=== PATIENT | female | born 1955 | race Caucasian/White ===

== ENCOUNTER 2018-07-13 23:19 | Inpatient (IN) | payer MEDICAID, OTHER | END 2018-07-19 14:14 | disposition home or self-care (01) | LOC: ER 23:19 → ED HOLD 07-14 03:14 → SUR 3N 07-15 10:11 ==

== ENCOUNTER 2018-09-29 05:18 | Emergency (ER) | payer MEDICAID ==
[~2018-09-29] VITALS: Ht 170.2 cm; Wt 63.8 kg
[~2018-09-29 05:18] MED LIST: LEVO250T58 PO; LISI-600 PO; METF-438 PO; OXYB5TAB PO
[2018-09-29 05:26] VITALS: BP 119/71
== END 2018-09-29 06:04 | disposition home or self-care (01) ==
LOC: ER 05:20
DX: Z46.6 Encounter for fitting and adjustment of urinary device (principal); I10 Essential (primary) hypertension; E11.9 Type 2 diabetes mellitus without complications; Z79.2 Long term (current) use of antibiotics; Z79.899 Other long term (current) drug therapy
CPT/HCPCS: 99281

== ENCOUNTER 2018-11-27 09:14 | Inpatient (IN) | payer MEDICAID ==
[~2018-11-27] VITALS: Ht 170.2 cm; Wt 79.5 kg
[~2018-11-27 09:14] MED LIST changes: -OXYB5TAB PO; +OXYB5TAB4 PO
[2018-11-27] MEDS ORDERED: ondansetron/PF 4mg/2ml inj IV ONE (09:45)
[2018-11-27] MEDS ORDERED: normal saline 1000ML IV soln IVB ONE (09:45)
[2018-11-27 09:56] LABS: BASOPHILS % (AUTO) 0.2 % (0-1); EOSINOPHILS # (AUTO) 0.1 X10'3 (0-0.9); EOSINOPHILS % (AUTO) 0.4 % (0-6); LYMPHOCYTES # (AUTO) 0.9 X10'3 (1.1-4.8); LYMPHOCYTES % (AUTO) 4.8 % (21-51); MEAN CORPUSCULAR HEMOGLOBIN 29.2 PG (27.0-31.0); MEAN CORPUSCULAR HGB CONC 32.3 g/dL (33.0-36.5); MEAN CORPUSCULAR VOLUME 90.5 FL (78-98); MEAN PLATELET VOLUME 7.6 FL (7.4-10.4); MONOCYTES # (AUTO) 0.9 X10'3 (0-0.9); MONOCYTES % (AUTO) 4.9 % (2-12); NEUTROPHILS % (AUTO) 89.7 % (42-75); PLATELET COUNT 351 X10'3 (140-440); RED BLOOD COUNT 2.31 X10'6 (4.20-5.60); RED CELL DISTRIBUTION WIDTH 16.9 % (11.5-14.5); WHITE BLOOD COUNT 17.9 X10'3 (4.5-11.0)
[2018-11-27 10:00] LABS: HEMATOCRIT 20.9 % (35.0-45.0); HEMOGLOBIN 6.7 g/dl (12.0-16.0)
[2018-11-27 10:09] LABS: ALANINE AMINOTRANSFERASE 13 U/L (12-78); ALBUMIN 1.8 G/DL (3.4-5.0); ALBUMIN/GLOBULIN RATIO 0.3 (1.1-1.5); ALKALINE PHOSPHATASE 141 IU/L (46-116); ANION GAP 12 (8-16); ASPARTATE AMINO TRANSFERASE 10 U/L (10-37); BILIRUBIN,TOTAL 0.4 MG/DL (0.1-1.0); BLOOD UREA NITROGEN 53 MG/DL (7-18); BUN/CREATININE RATIO 19.5 (6.6-38.0); CALCIUM 9.4 MG/DL (8.5-10.1); CHLORIDE 101 MMOL/L (99-107); CREATININE 2.72 MG/DL (0.40-0.90); GLUCOSE 108 MG/DL (70-104); POTASSIUM 4.9 MMOL/L (3.5-5.1); SODIUM 130 MMOL/L (135-145); TOTAL CARBON DIOXIDE 17.2 MMOL/L (24-32); TOTAL PROTEIN 7.7 G/DL (6.4-8.2); eGFR 18 ML/MIN
[2018-11-27] MEDS: morphine 4 MG/ML inj SYRINge IV PRN ×2 (10:14→11:24)
[2018-11-27 10:22] LABS: CLARITY,URINE CLEAR (Clear); GLUCOSE, URINE 100 mg/dl (Neg); KETONES,URINE NEGATIVE (Neg); LEUKOCYTE ESTERASE ,URINE LARGE (Neg); NITRITES, URINE POSITIVE (Neg); OCCULT BLOOD,URINE LARGE (Neg); PH,URINE 8.5 (4.8-8.0); PROTEIN,URINE >=300 mg/dl (Neg)
[2018-11-27 10:24] LABS: COLOR,URINE BROWN (Yellow); UA COLLECTION TYPE STRAIGHT CATH
[2018-11-27 10:27] LABS: WBC,URINE TNTC /HPF (0-4)
[2018-11-27 10:28] LABS: BACTERIA,URINE 4+ /HPF (Neg); RBC,URINE 50-100 /HPF (0-2); SQUAMOUS EPITHELIAL CELL,UR MODERATE /LPF (FEW)
[2018-11-27] MEDS ORDERED: CefTRIAXone 2gm/D5W 50ml 50 ML IV ONE (10:30)
[2018-11-27] MEDS ORDERED: normal saline 1000ML IV soln IV ONE (10:30)
[2018-11-27] MEDS ORDERED: glucagon, human recombinant 1mg kit SUBCUT PRN (12:05)
[2018-11-27] MEDS ORDERED: ondansetron/PF 4mg/2ml inj IV PRN (12:05)
[2018-11-27] MEDS ORDERED: MESSAGE TO PHARMACY PO ONE (12:05)
[2018-11-27] MEDS ORDERED: acetaminophen 325mg tablet PO PRN ×2 (12:05)
[2018-11-27] MEDS ORDERED: dextrose 50%-water 50ml dispensing syringe IV PRN ×2 (12:05)
[2018-11-27] MEDS ORDERED: dextrose ORAL solution 15 GM/59 ML bottle PO PRN ×2 (12:05)
[2018-11-27] MEDS ORDERED: insulin Lispro (HumaLOG) vial - multi-dose SQ SCH (12:05)
--- NOTE | 2018-11-27 12:27 | NUR ---
Briana from blood bank stated pt has nonspecific antibodies after type and cross completed
[2018-11-27 12:34] LABS: HEMOGLOBIN A1C 5.4 % (4.5-6.2)
[2018-11-27] MEDS ORDERED: NITR100C11 PO (12:35)
[2018-11-27] MEDS ORDERED: ONDA8TAB12 PO (12:35)
[2018-11-27] MEDS ORDERED: HYDR-3972 PO (12:35)
[2018-11-27 12:50] VITALS: BP 109/56
[2018-11-27 13:07] VITALS: BP 117/63
--- NOTE | 2018-11-27 13:07 | NUR ---
SECOND SET OF VITALS COMPLETE, NO NOTED REACTION, PT RESTING QUIETLY AFTER CLEANING HER UP AND PUTTING ON DRY PADS
[2018-11-27] MEDS: normal saline 1000ml 1,000 ML IV SCH ×2 (14:24→22:31)
--- NOTE | 2018-11-27 14:39 | NUR ---
BLOOD COMPLETE, V/S STABLE AND RECORDED, CLEANED AND DRIED PT UP APPLYING NEW CHUX, DRY GOWN AND WARM BLANKS. REPOSITIONED PT AND BEGAN MAINTANCE N/S CALL VELEZ AT BEDSIDE
--- NOTE | 2018-11-27 15:00 | NUR ---
Patient in room PCU 3010. I have received report from Leslie Barnard RN and had the opportunity to ask questions and assume patient care.
[2018-11-27 15:15] VITALS: BP 127/54
[2018-11-27] MEDS: piperacillin/tazo 3.375gm/50ml 50 ML IV SCH ×2 (16:13→23:53)
[2018-11-27 16:32] LABS: MEAN CORPUSCULAR HEMOGLOBIN 29.3 PG (27.0-31.0); MEAN CORPUSCULAR HGB CONC 32.9 g/dL (33.0-36.5); MEAN CORPUSCULAR VOLUME 89.1 FL (78-98); MEAN PLATELET VOLUME 7.4 FL (7.4-10.4); PLATELET COUNT 285 X10'3 (140-440); RED BLOOD COUNT 2.32 X10'6 (4.20-5.60); RED CELL DISTRIBUTION WIDTH 16.8 % (11.5-14.5); WHITE BLOOD COUNT 15.4 X10'3 (4.5-11.0)
[2018-11-27 16:36] LABS: HEMATOCRIT 20.7 % (35.0-45.0); HEMOGLOBIN 6.8 g/dl (12.0-16.0)
--- NOTE | 2018-11-27 16:42 | NUR ---
Page sent to Dr. Patton regarding critical lab results. PAGER ID: [phone] MESSAGE: RE: [phone] Leslie Johnson. Critical Lab: Hgb 6.8 Hct 20.7. Thanks. Dilcia Reyes [phone]
[2018-11-27 17:41] LABS: HEMOGLOBIN 7.1 g/dl (12.0-16.0); MEAN CORPUSCULAR HEMOGLOBIN 28.5 PG (27.0-31.0); MEAN CORPUSCULAR HGB CONC 32.2 g/dL (33.0-36.5); MEAN CORPUSCULAR VOLUME 88.5 FL (78-98); MEAN PLATELET VOLUME 7.4 FL (7.4-10.4); PLATELET COUNT 318 X10'3 (140-440); RED BLOOD COUNT 2.48 X10'6 (4.20-5.60); RED CELL DISTRIBUTION WIDTH 16.7 % (11.5-14.5); WHITE BLOOD COUNT 16.8 X10'3 (4.5-11.0)
--- NOTE | 2018-11-27 17:46 | NUR ---
Paged Dr. Patton r/t 1800 hemogram results PAGER ID: [phone] MESSAGE: Constantine GODOY [phone] AmandeepLeslie marquez: [phone] hemogram results: Hgb 7.1. Hct 22.0
[2018-11-27 18:04] LABS: % IRON SATURATION 28 % (11-46); IRON 23 UG/DL (49-151); TOTAL IRON BINDING CAPACITY 83 UG/DL (259-388)
--- NOTE | 2018-11-27 18:29 | NUR ---
Problems reprioritized. Patient report given, questions answered & plan of care reviewed with Francesco GODOY.
--- NOTE | 2018-11-27 18:30 | NUR ---
Patient in room PCU 3010. I have received report from Constantine Braun and Kade Ha and had the opportunity to ask questions and assume patient care.
[2018-11-27 18:35] LABS: FERRITIN 1598 NG/ML (8-252)
[2018-11-27 19:00] VITALS: BP 127/54
[2018-11-27] MEDS: heparin, porcine 5000 units/ml vial SQ SCH (19:50)
[2018-11-27] MEDS: docusate sod 100mg capsule PO SCH (19:50)
[2018-11-27] MEDS: HYDROcodone/acetaminophen 5mg/325mg tablet PO PRN (19:51)
[2018-11-27] MEDS: NYSTATIN CREAM - 30GM TUBE TP SCH (19:52)
[2018-11-27] MEDS: insulin glargine (Lantus) pen - multi-dose SQ SCH (21:00)
[2018-11-27 22:00] VITALS: BP 113/54
[2018-11-28] VITALS (12 sets, daily range): BP systolic 110–163; BP diastolic 50–76
[2018-11-28] MEDS: HYDROcodone/acetaminophen 5mg/325mg tablet PO PRN ×4 (04:49→23:06)
[2018-11-28 05:05] LABS: BASOPHILS % (AUTO) 0.2 % (0-1); EOSINOPHILS # (AUTO) 0.1 X10'3 (0-0.9); EOSINOPHILS % (AUTO) 0.6 % (0-6); LYMPHOCYTES # (AUTO) 0.5 X10'3 (1.1-4.8); LYMPHOCYTES % (AUTO) 3.7 % (21-51); MEAN CORPUSCULAR HEMOGLOBIN 29.2 PG (27.0-31.0); MEAN CORPUSCULAR HGB CONC 32.8 g/dL (33.0-36.5); MEAN CORPUSCULAR VOLUME 88.9 FL (78-98); MEAN PLATELET VOLUME 7.6 FL (7.4-10.4); MONOCYTES # (AUTO) 0.7 X10'3 (0-0.9); MONOCYTES % (AUTO) 4.4 % (2-12); NEUTROPHILS # (AUTO) 13.6 X10'3 (1.8-7.7); NEUTROPHILS % (AUTO) 91.1 % (42-75); PLATELET COUNT 272 X10'3 (140-440); RED BLOOD COUNT 2.15 X10'6 (4.20-5.60); WHITE BLOOD COUNT 14.9 X10'3 (4.5-11.0)
[2018-11-28 05:15] LABS: ALANINE AMINOTRANSFERASE 12 U/L (12-78); ALBUMIN 1.3 G/DL (3.4-5.0); ALBUMIN/GLOBULIN RATIO 0.3 (1.1-1.5); ALKALINE PHOSPHATASE 122 IU/L (46-116); ANION GAP 12 (8-16); ASPARTATE AMINO TRANSFERASE 12 U/L (10-37); BILIRUBIN,TOTAL 0.3 MG/DL (0.1-1.0); BLOOD UREA NITROGEN 47 MG/DL (7-18); BUN/CREATININE RATIO 20.2 (6.6-38.0); CALCIUM 8.1 MG/DL (8.5-10.1); CHLORIDE 106 MMOL/L (99-107); CREATININE 2.33 MG/DL (0.40-0.90); GLUCOSE 84 MG/DL (70-104); POTASSIUM 4.8 MMOL/L (3.5-5.1); SODIUM 134 MMOL/L (135-145); TOTAL CARBON DIOXIDE 16.3 MMOL/L (24-32); TOTAL PROTEIN 6.2 G/DL (6.4-8.2); eGFR 21 ML/MIN
[2018-11-28 05:45] LABS: HEMATOCRIT 19.1 % (35.0-45.0); HEMOGLOBIN 6.3 g/dl (12.0-16.0)
--- NOTE | 2018-11-28 06:31 | NUR ---
Problems reprioritized. Patient report given, questions answered & plan of care reviewed with WALT Andres.
--- NOTE | 2018-11-28 06:48 | NUR ---
Patient in room PCU 3010. I have received report from Francesco GODOY and had the opportunity to ask questions and assume patient care.
[2018-11-28] MEDS: docusate sod 100mg capsule PO SCH ×2 (07:24→20:00)
[2018-11-28] MEDS: piperacillin/tazo 3.375gm/50ml 50 ML IV SCH (07:24)
[2018-11-28] MEDS: NYSTATIN CREAM - 30GM TUBE TP SCH ×2 (07:24→20:00)
[2018-11-28] MEDS: heparin, porcine 5000 units/ml vial SQ SCH ×2 (08:00→21:03)
[2018-11-28] MEDS: normal saline 1000ml 1,000 ML IV SCH ×2 (08:05→18:05)
[2018-11-28] MEDS: CefTRIAXone 2gm/D5W 50ml 50 ML IV SCH (08:56)
--- NOTE | 2018-11-28 10:17 | NUR ---
Paged Dr Quiroz with critical values " PAGER ID: [phone] MESSAGE: [phone] Pina Christie Elizabeth Leslie Blood cultures are positive from the left arm drawn on 11/27. Gram positive cocci in chains and pairs. Became positive at 22-23 hours."
--- NOTE | 2018-11-28 11:22 | NUR ---
PRESSURE ULCER EDUCATION: DEFINITION: A pressure ulcer is an area of skin that breaks down when you stay in one position too long. The constant pressure against the skin reduces the blood flow to that area and the affected tissue dies. CAUSES: "Being bedridden or in a wheelchair "Fragile skin "Having a chronic condition, such as diabetes or vascular disease "Inability to move certain parts of your body without assistance "Older age "Incontinence of urine or stool SYMPTOMS: "A reddened area that DOES NOT turn white when pressed on - this can be the beginning of a pressure ulcer "A blister, deep sore or a crater - these can be advanced pressure ulcers FIRST AID: "Relieve the pressure on this area "Keep the area clean and dry "Call your primary doctor if you see any of the above symptoms "DO NOT massage the area "DO NOT use a donut shaped or ring shaped pillow- these actually interfere with the blood flow and cause complications PREVENTION: "Check for pressure ulcers everyday "Change position at least every two hours to relieve pressure "Use items that help relieve pressure- pillows, sheepskin, foam padding, and powders. "Keep skin clean and dry "Eat healthy well balanced meals "Exercise daily IF YOU SEE ANY OF THESE SYMPTOMS WHILE IN THE HOSPITAL - TELL YOUR NURSE IMMEDIATELY. IF YOU SEE ANY OF THESE SYMPTOMS WHILE AT HOME OR HAVE ANY QUESTIONS OR CONCERNS ABOUT PRESSURE ULCERS - CALL YOUR PRIMARY DOCTOR IMMEDIATELY. Addendum: 11/28/18 at 1122 by Cash Torres RN Amended: Links added.
--- NOTE | 2018-11-28 12:36 | NUR ---
breaking assigned nurse Melly for lunch, [place] given for patient, states her abdominal pain is not new, she has had it previously before getting her blood transfusion. Melly is aware.
--- NOTE | 2018-11-28 13:54 | NUR ---
Wound consult: Steffen Arzate. Per [facility] notes pt with DTI to sacrum, red and purple in color. Pt currently on CHO controlled diet with documented 50% PO intake at dinner last night up to 75% at breakfast this morning. No further nutrition intervention warranted at this time. Will continue to follow. Addendum: 11/28/18 at [address] Amended: Links added.
[2018-11-28 17:40] LABS: HEMATOCRIT 25.8 % (35.0-45.0); HEMOGLOBIN 8.4 g/dl (12.0-16.0); MEAN CORPUSCULAR HEMOGLOBIN 29.1 PG (27.0-31.0); MEAN CORPUSCULAR HGB CONC 32.6 g/dL (33.0-36.5); MEAN CORPUSCULAR VOLUME 89.3 FL (78-98); MEAN PLATELET VOLUME 7.5 FL (7.4-10.4); PLATELET COUNT 307 X10'3 (140-440); RED BLOOD COUNT 2.88 X10'6 (4.20-5.60); RED CELL DISTRIBUTION WIDTH 16.9 % (11.5-14.5); WHITE BLOOD COUNT 18.4 X10'3 (4.5-11.0)
--- NOTE | 2018-11-28 18:51 | NUR ---
Problems reprioritized. Patient report given, questions answered & plan of care reviewed with Pat RN.
--- NOTE | 2018-11-28 19:30 | NUR ---
pt states she has no control of urine; has a continuous trickle of urine when doing chantal care; christelle hess cath in placed Addendum: 11/29/18 at 0218 by Jamia Mahoney RN Amended: Links added.
[2018-11-28] MEDS: lactobacillus rhamnosus 10,000 MMU CELLS/CAPSULE PO SCH (21:02)
[2018-11-28] MEDS: insulin glargine (Lantus) pen - multi-dose SQ SCH (21:19)
[2018-11-29] MEDS: normal saline 1000ml 1,000 ML IV SCH ×2 (02:34→16:41)
[2018-11-29 03:00] VITALS: BP 161/82
[2018-11-29] MEDS: morphine 2 MG/ML inj. syringe IV PRN ×3 (04:01→22:41)
[2018-11-29 04:44] LABS: BASOPHILS % (AUTO) 0.3 % (0-1); EOSINOPHILS # (AUTO) 0.1 X10'3 (0-0.9); HEMATOCRIT 24.3 % (35.0-45.0); LYMPHOCYTES # (AUTO) 0.6 X10'3 (1.1-4.8); LYMPHOCYTES % (AUTO) 4.6 % (21-51); MEAN CORPUSCULAR HEMOGLOBIN 29.2 PG (27.0-31.0); MEAN CORPUSCULAR HGB CONC 32.8 g/dL (33.0-36.5); MEAN CORPUSCULAR VOLUME 89.1 FL (78-98); MEAN PLATELET VOLUME 7.4 FL (7.4-10.4); MONOCYTES # (AUTO) 0.6 X10'3 (0-0.9); MONOCYTES % (AUTO) 4.3 % (2-12); NEUTROPHILS # (AUTO) 12.3 X10'3 (1.8-7.7); NEUTROPHILS % (AUTO) 89.8 % (42-75); PLATELET COUNT 246 X10'3 (140-440); RED BLOOD COUNT 2.73 X10'6 (4.20-5.60); RED CELL DISTRIBUTION WIDTH 16.7 % (11.5-14.5); WHITE BLOOD COUNT 13.7 X10'3 (4.5-11.0)
[2018-11-29 04:52] LABS: ALANINE AMINOTRANSFERASE 10 U/L (12-78); ALBUMIN 1.3 G/DL (3.4-5.0); ALBUMIN/GLOBULIN RATIO 0.3 (1.1-1.5); ALKALINE PHOSPHATASE 123 IU/L (46-116); ANION GAP 11 (8-16); ASPARTATE AMINO TRANSFERASE 12 U/L (10-37); BILIRUBIN,TOTAL 0.3 MG/DL (0.1-1.0); BLOOD UREA NITROGEN 43 MG/DL (7-18); BUN/CREATININE RATIO 18.6 (6.6-38.0); CALCIUM 8.5 MG/DL (8.5-10.1); CHLORIDE 106 MMOL/L (99-107); CREATININE 2.31 MG/DL (0.40-0.90); GLUCOSE 85 MG/DL (70-104); POTASSIUM 4.5 MMOL/L (3.5-5.1); SODIUM 133 MMOL/L (135-145); TOTAL CARBON DIOXIDE 16.5 MMOL/L (24-32); TOTAL PROTEIN 6.3 G/DL (6.4-8.2); eGFR 21 ML/MIN
[2018-11-29 06:00] VITALS: BP 138/75
--- NOTE | 2018-11-29 06:00 | NUR ---
Patient in room PCU 3010. I have received report from Susan RN and had the opportunity to ask questions and assume patient care.
[2018-11-29] MEDS: lactobacillus rhamnosus 10,000 MMU CELLS/CAPSULE PO SCH ×2 (07:29→21:13)
[2018-11-29] MEDS: HYDROcodone/acetaminophen 5mg/325mg tablet PO PRN ×3 (07:30→21:14)
[2018-11-29] MEDS: heparin, porcine 5000 units/ml vial SQ SCH ×2 (07:31→21:13)
[2018-11-29] MEDS: CefTRIAXone 2gm/D5W 50ml 50 ML IV SCH (07:31)
[2018-11-29] MEDS: docusate sod 100mg capsule PO SCH ×2 (07:38→21:14)
[2018-11-29] MEDS: NYSTATIN CREAM - 30GM TUBE TP SCH ×2 (08:00→19:53)
[2018-11-29 08:29] VITALS: BP 134/74
[2018-11-29 11:00] VITALS: BP 139/78
--- NOTE | 2018-11-29 14:47 | NUR ---
Page to Dr Quiroz re: Room 3010 Leslie Johnson takes [place] 10/325 Q6 at home, has 5/325 Q8 here, alt with IV MS, can we increase [place] to home dose please? Talia [phone]
--- NOTE | 2018-11-29 18:00 | NUR ---
Problems reprioritized. Patient report given, questions answered & plan of care reviewed with Radha GODOY.
--- NOTE | 2018-11-29 18:15 | NUR ---
Patient in room PCU 3010. I have received report from Phyllis GODOY and had the opportunity to ask questions and assume patient care.
[2018-11-29 18:43] VITALS: BP 149/76
[2018-11-29] MEDS: insulin glargine (Lantus) pen - multi-dose SQ SCH (21:00)
[2018-11-29 23:10] VITALS: BP_SYST 146; BP_SYST 196; BP_DIAS 78
[2018-11-30] VITALS (7 sets, daily range): BP systolic 143–169; BP diastolic 65–85
[2018-11-30] MEDS: normal saline 1000ml 1,000 ML IV SCH ×3 (00:05→20:05)
[2018-11-30] MEDS: temazepam 15mg capsule PO PRN ×2 (02:40→22:14)
[2018-11-30] MEDS: HYDROcodone/acetaminophen 5mg/325mg tablet PO PRN (05:38)
[2018-11-30 05:58] LABS: BASOPHILS % (AUTO) 0.4 % (0-1); EOSINOPHILS # (AUTO) 0.1 X10'3 (0-0.9); EOSINOPHILS % (AUTO) 0.7 % (0-6); HEMATOCRIT 26.2 % (35.0-45.0); HEMOGLOBIN 8.6 g/dl (12.0-16.0); LYMPHOCYTES # (AUTO) 0.6 X10'3 (1.1-4.8); LYMPHOCYTES % (AUTO) 5.6 % (21-51); MEAN CORPUSCULAR HEMOGLOBIN 29.8 PG (27.0-31.0); MEAN CORPUSCULAR HGB CONC 32.8 g/dL (33.0-36.5); MEAN PLATELET VOLUME 7.6 FL (7.4-10.4); MONOCYTES # (AUTO) 0.4 X10'3 (0-0.9); NEUTROPHILS # (AUTO) 9.2 X10'3 (1.8-7.7); NEUTROPHILS % (AUTO) 89.3 % (42-75); PLATELET COUNT 240 X10'3 (140-440); RED BLOOD COUNT 2.88 X10'6 (4.20-5.60); RED CELL DISTRIBUTION WIDTH 17.2 % (11.5-14.5); WHITE BLOOD COUNT 10.3 X10'3 (4.5-11.0)
--- NOTE | 2018-11-30 06:00 | NUR ---
Patient in room PCU 3010. I have received report from Radha GODOY and had the opportunity to ask questions and assume patient care.
[2018-11-30 06:06] LABS: ALANINE AMINOTRANSFERASE 15 U/L (12-78); ALBUMIN 1.4 G/DL (3.4-5.0); ALBUMIN/GLOBULIN RATIO 0.3 (1.1-1.5); ALKALINE PHOSPHATASE 116 IU/L (46-116); ANION GAP 13 (8-16); ASPARTATE AMINO TRANSFERASE 10 U/L (10-37); BILIRUBIN,TOTAL 0.1 MG/DL (0.1-1.0); BLOOD UREA NITROGEN 37 MG/DL (7-18); BUN/CREATININE RATIO 16.7 (6.6-38.0); CALCIUM 8.8 MG/DL (8.5-10.1); CHLORIDE 107 MMOL/L (99-107); CREATININE 2.21 MG/DL (0.40-0.90); GLUCOSE 87 MG/DL (70-104); SODIUM 135 MMOL/L (135-145); TOTAL CARBON DIOXIDE 15.2 MMOL/L (24-32); TOTAL PROTEIN 6.8 G/DL (6.4-8.2); eGFR 22 ML/MIN
[2018-11-30 06:22] LABS: POTASSIUM 4.7 MMOL/L (3.5-5.1)
--- NOTE | 2018-11-30 06:22 | NUR ---
Problems reprioritized. Patient report given, questions answered & plan of care reviewed with Floridalma GODOY and Caitlin GODOY. Addendum: 11/30/18 at 0625 by Radha Lomeli RN Patient report was given to Talia GODOY.
[2018-11-30 08:30] LABS: TOTAL CELLS COUNTED 100
[2018-11-30 08:31] LABS: ANISOCYTOSIS 1+; BURR CELLS 1+; PLATELET ESTIMATE NORMAL; POLYCHROMASIA 1+; ROULEAUX 1+; TEAR DROP CELLS 1+; TOXIC GRANULATION 2+
[2018-11-30] MEDS: morphine 2 MG/ML inj. syringe IV PRN (08:50)
[2018-11-30] MEDS: docusate sod 100mg capsule PO SCH ×2 (08:50→19:39)
[2018-11-30] MEDS: lactobacillus rhamnosus 10,000 MMU CELLS/CAPSULE PO SCH ×2 (08:50→19:38)
[2018-11-30] MEDS: CefTRIAXone 2gm/D5W 50ml 50 ML IV SCH (08:51)
[2018-11-30] MEDS: heparin, porcine 5000 units/ml vial SQ SCH ×2 (08:51→19:38)
[2018-11-30] MEDS: NYSTATIN CREAM - 30GM TUBE TP SCH ×2 (09:05→19:39)
[2018-11-30] MEDS: HYDROcodone/acetaminophen 10/325mg tab PO PRN ×2 (16:03→22:14)
--- NOTE | 2018-11-30 18:21 | NUR ---
Problems reprioritized. Patient report given, questions answered & plan of care reviewed with Belen GODOY.
[2018-11-30] MEDS: insulin glargine (Lantus) pen - multi-dose SQ SCH (21:00)
[2018-12-01] VITALS (7 sets, daily range): BP systolic 146–183; BP diastolic 67–91
[2018-12-01] MEDS: morphine 2 MG/ML inj. syringe IV PRN ×2 (00:50→19:54)
[2018-12-01] MEDS: HYDROcodone/acetaminophen 10/325mg tab PO PRN ×4 (04:40→23:40)
--- NOTE | 2018-12-01 06:00 | NUR ---
Patient in room PCU 3010. I have received report from Belen GODOY and had the opportunity to ask questions and assume patient care.
[2018-12-01 06:38] LABS: ALANINE AMINOTRANSFERASE 13 U/L (12-78); ALBUMIN 1.5 G/DL (3.4-5.0); ALBUMIN/GLOBULIN RATIO 0.3 (1.1-1.5); ALKALINE PHOSPHATASE 103 IU/L (46-116); ANION GAP 13 (8-16); ASPARTATE AMINO TRANSFERASE 7 U/L (10-37); BILIRUBIN,TOTAL 0.2 MG/DL (0.1-1.0); BLOOD UREA NITROGEN 33 MG/DL (7-18); BUN/CREATININE RATIO 17.2 (6.6-38.0); CALCIUM 8.9 MG/DL (8.5-10.1); CHLORIDE 108 MMOL/L (99-107); CREATININE 1.92 MG/DL (0.40-0.90); GLUCOSE 83 MG/DL (70-104); POTASSIUM 4.4 MMOL/L (3.5-5.1); SODIUM 136 MMOL/L (135-145); TOTAL PROTEIN 6.6 G/DL (6.4-8.2); eGFR 26 ML/MIN
[2018-12-01 06:39] LABS: TOTAL CARBON DIOXIDE 14.8 MMOL/L (24-32)
--- NOTE | 2018-12-01 06:46 | NUR ---
Call to Dr Toth re: Critical CO2 of 14.8, new order for Lactic Acid lab
[2018-12-01 06:55] LABS: BASOPHILS % (AUTO) 0.4 % (0-1); EOSINOPHILS # (AUTO) 0.1 X10'3 (0-0.9); EOSINOPHILS % (AUTO) 0.7 % (0-6); HEMATOCRIT 24.9 % (35.0-45.0); HEMOGLOBIN 8.3 g/dl (12.0-16.0); LYMPHOCYTES # (AUTO) 0.6 X10'3 (1.1-4.8); MEAN CORPUSCULAR HGB CONC 33.1 g/dL (33.0-36.5); MEAN CORPUSCULAR VOLUME 90.7 FL (78-98); MEAN PLATELET VOLUME 7.8 FL (7.4-10.4); MONOCYTES # (AUTO) 0.4 X10'3 (0-0.9); NEUTROPHILS # (AUTO) 7.4 X10'3 (1.8-7.7); NEUTROPHILS % (AUTO) 86.9 % (42-75); PLATELET COUNT 246 X10'3 (140-440); RED BLOOD COUNT 2.75 X10'6 (4.20-5.60); WHITE BLOOD COUNT 8.5 X10'3 (4.5-11.0)
[2018-12-01] MEDS: docusate sod 100mg capsule PO SCH ×2 (08:00→20:00)
[2018-12-01] MEDS: heparin, porcine 5000 units/ml vial SQ SCH ×2 (08:19→19:54)
[2018-12-01] MEDS: CefTRIAXone 2gm/D5W 50ml 50 ML IV SCH (08:19)
[2018-12-01] MEDS: lactobacillus rhamnosus 10,000 MMU CELLS/CAPSULE PO SCH ×2 (08:19→19:54)
[2018-12-01] MEDS: normal saline 1000ml 1,000 ML IV SCH (08:20)
[2018-12-01] MEDS: NYSTATIN CREAM - 30GM TUBE TP SCH ×2 (08:21→20:06)
[2018-12-01 09:13] LABS: ANISOCYTOSIS 1+; PLATELET ESTIMATE NORMAL; TOTAL CELLS COUNTED 100
[2018-12-01 09:14] LABS: POLYCHROMASIA FEW; ROULEAUX 1+; TOXIC GRANULATION 2+
[2018-12-01] MEDS: sodium bicarbonate (8.4%) inj. 100 MEQ in dextrose 5%-water 1,000 ML IV SCH (15:03)
--- NOTE | 2018-12-01 16:35 | NUR ---
Notified primary RN of elevated BPs.
--- NOTE | 2018-12-01 18:00 | NUR ---
Patient in room PCU 3010. I have received report from Phyllis GODOY and had the opportunity to ask questions and assume patient care.
--- NOTE | 2018-12-01 18:00 | NUR ---
Problems reprioritized. Patient report given, questions answered & plan of care reviewed with Belen GODOY.
[2018-12-01] MEDS: insulin glargine (Lantus) pen - multi-dose SQ SCH (20:07)
[2018-12-01] MEDS: temazepam 15mg capsule PO PRN (23:40)
[2018-12-02] VITALS (7 sets, daily range): BP systolic 131–175; BP diastolic 63–84
[2018-12-02] MEDS: sodium bicarbonate (8.4%) inj. 100 MEQ in dextrose 5%-water 1,000 ML IV SCH ×3 (01:10→22:58)
[2018-12-02] MEDS: HYDROcodone/acetaminophen 10/325mg tab PO PRN ×4 (04:47→21:12)
[2018-12-02 06:21] LABS: BASOPHILS % (AUTO) 0.2 % (0-1); EOSINOPHILS # (AUTO) 0.1 X10'3 (0-0.9); EOSINOPHILS % (AUTO) 0.8 % (0-6); HEMATOCRIT 22.9 % (35.0-45.0); HEMOGLOBIN 7.7 g/dl (12.0-16.0); LYMPHOCYTES # (AUTO) 0.6 X10'3 (1.1-4.8); LYMPHOCYTES % (AUTO) 8.3 % (21-51); MEAN CORPUSCULAR HEMOGLOBIN 30.1 PG (27.0-31.0); MEAN CORPUSCULAR HGB CONC 33.4 g/dL (33.0-36.5); MEAN CORPUSCULAR VOLUME 89.9 FL (78-98); MEAN PLATELET VOLUME 7.1 FL (7.4-10.4); MONOCYTES # (AUTO) 0.4 X10'3 (0-0.9); MONOCYTES % (AUTO) 5.8 % (2-12); NEUTROPHILS # (AUTO) 6.4 X10'3 (1.8-7.7); NEUTROPHILS % (AUTO) 84.9 % (42-75); PLATELET COUNT 189 X10'3 (140-440); RED BLOOD COUNT 2.55 X10'6 (4.20-5.60); RED CELL DISTRIBUTION WIDTH 16.7 % (11.5-14.5); WHITE BLOOD COUNT 7.5 X10'3 (4.5-11.0)
--- NOTE | 2018-12-02 06:23 | NUR ---
Problems reprioritized. Patient report given, questions answered & plan of care reviewed with Zuri GODOY.
--- NOTE | 2018-12-02 06:25 | NUR ---
Patient in room PCU 3010. I have received report from Belen GODOY and had the opportunity to ask questions and assume patient care.
[2018-12-02 06:33] LABS: ALANINE AMINOTRANSFERASE 13 U/L (12-78); ALBUMIN 1.5 G/DL (3.4-5.0); ALBUMIN/GLOBULIN RATIO 0.3 (1.1-1.5); ALKALINE PHOSPHATASE 88 IU/L (46-116); ANION GAP 11 (8-16); ASPARTATE AMINO TRANSFERASE 15 U/L (10-37); BILIRUBIN,TOTAL 0.2 MG/DL (0.1-1.0); BLOOD UREA NITROGEN 29 MG/DL (7-18); BUN/CREATININE RATIO 15.7 (6.6-38.0); CALCIUM 8.6 MG/DL (8.5-10.1); CHLORIDE 109 MMOL/L (99-107); CREATININE 1.85 MG/DL (0.40-0.90); GLUCOSE 97 MG/DL (70-104); POTASSIUM 4.1 MMOL/L (3.5-5.1); SODIUM 137 MMOL/L (135-145); TOTAL CARBON DIOXIDE 17.5 MMOL/L (24-32); TOTAL PROTEIN 6.2 G/DL (6.4-8.2); eGFR 28 ML/MIN
[2018-12-02] MEDS: NYSTATIN CREAM - 30GM TUBE TP SCH ×2 (08:00→19:27)
[2018-12-02] MEDS: docusate sod 100mg capsule PO SCH ×3 (08:00→19:27)
[2018-12-02 09:06] LABS: ANISOCYTOSIS 1+; PLATELET ESTIMATE NORMAL; TOTAL CELLS COUNTED 100
[2018-12-02 09:07] LABS: POLYCHROMASIA FEW; TOXIC GRANULATION 2+
[2018-12-02] MEDS: lactobacillus rhamnosus 10,000 MMU CELLS/CAPSULE PO SCH ×2 (09:18→19:27)
[2018-12-02] MEDS: heparin, porcine 5000 units/ml vial SQ SCH ×2 (09:19→19:26)
[2018-12-02] MEDS: CefTRIAXone 2gm/D5W 50ml 50 ML IV SCH (09:19)
--- NOTE | 2018-12-02 18:17 | NUR ---
Patient in room PCU 3010. I have received report from Kamila GODOY and had the opportunity to ask questions and assume patient care.
--- NOTE | 2018-12-02 18:25 | NUR ---
Problems reprioritized. Patient report given, questions answered & plan of care reviewed with Belen GODOY.
[2018-12-02] MEDS: morphine 2 MG/ML inj. syringe IV PRN (19:27)
[2018-12-02] MEDS: insulin glargine (Lantus) pen - multi-dose SQ SCH (21:00)
[2018-12-02] MEDS: temazepam 15mg capsule PO PRN (21:17)
[2018-12-03] MEDS: HYDROcodone/acetaminophen 10/325mg tab PO PRN ×2 (01:13→05:32)
[2018-12-03 03:13] VITALS: BP 153/79
[2018-12-03 06:00] VITALS: BP 149/82
--- NOTE | 2018-12-03 06:17 | NUR ---
Problems reprioritized. Patient report given, questions answered & plan of care reviewed with Kamila GODOY.
--- NOTE | 2018-12-03 06:20 | NUR ---
Patient in room PCU 3010. I have received report from syed GODOY and had the opportunity to ask questions and assume patient care.
[2018-12-03 07:42] LABS: ALBUMIN 1.5 G/DL (3.4-5.0); ANION GAP 8 (8-16); BLOOD UREA NITROGEN 26 MG/DL (7-18); BUN/CREATININE RATIO 15.8 (6.6-38.0); CALCIUM 8.3 MG/DL (8.5-10.1); CHLORIDE 105 MMOL/L (99-107); CREATININE 1.65 MG/DL (0.40-0.90); GLUCOSE 103 MG/DL (70-104); POTASSIUM 3.8 MMOL/L (3.5-5.1); SODIUM 135 MMOL/L (135-145); TOTAL CARBON DIOXIDE 21.8 MMOL/L (24-32); eGFR 32 ML/MIN
[2018-12-03] MEDS: docusate sod 100mg capsule PO SCH (08:00)
[2018-12-03] MEDS: lactobacillus rhamnosus 10,000 MMU CELLS/CAPSULE PO SCH (08:41)
[2018-12-03] MEDS: heparin, porcine 5000 units/ml vial SQ SCH (08:44)
[2018-12-03] MEDS: CefTRIAXone 2gm/D5W 50ml 50 ML IV SCH (08:44)
[2018-12-03] MEDS: NYSTATIN CREAM - 30GM TUBE TP SCH (08:45)
[2018-12-03] MEDS: morphine 2 MG/ML inj. syringe IV PRN (08:52)
[2018-12-03] MEDS: sodium bicarbonate (8.4%) inj. 100 MEQ in dextrose 5%-water 1,000 ML IV SCH (08:52)
[2018-12-03] MEDS ORDERED: LEVO750T21 PO (10:57)
--- NOTE | 2018-12-03 13:55 | NUR ---
patient discharged all Instructions given to patient. New prescriptions were delivered to bedside. tele box removed and returned to box, IV removed cannula intact. Patient taken down by auxillary in a wheelchair.
== END 2018-12-03 13:10 | disposition home or self-care (01) | DRG 720 ==
LOC: ER 09:14 → PCU 3S 15:17 → CMPBEDREQ 19:42
PROVIDERS: ADMIT Internal Medicine; ATTEND Internal Medicine
PROC: 30233N1 Transfusion of Nonautologous Red Blood Cells into Peripheral Vein, Percutaneous Approach (ICD-10-PCS; principal; 2018-11-27)
DX: A41.9 Sepsis, unspecified organism (principal); N17.9 Acute kidney failure, unspecified; E87.2 Acidosis; E11.22 Type 2 diabetes mellitus with diabetic chronic kidney disease; D64.81 Anemia due to antineoplastic chemotherapy; E11.65 Type 2 diabetes mellitus with hyperglycemia; L89.92 Pressure ulcer of unspecified site, stage 2; I12.9 Hypertensive chronic kidney disease with stage 1 through stage 4 chronic kidney disease, or unspecified chronic kidney disease; R21 Rash and other nonspecific skin eruption; C67.9 Malignant neoplasm of bladder, unspecified; N18.9 Chronic kidney disease, unspecified; N39.0 Urinary tract infection, site not specified; B95.5 Unspecified streptococcus as the cause of diseases classified elsewhere; Z87.440 Personal history of urinary (tract) infections; Z86.718 Personal history of other venous thrombosis and embolism
CPT/HCPCS: 36415; 71045; 76937; 80048; 80053; 81001; 82728; 82948; 83036; 83520; 83540; 83550; 83605; 84145; 84484; 85025; 85027; 86870; 86880; 86885; 86900; 86901; 86902; 86905; 86922; 87040; 87077; 87081; 87088; 87186; 93005; 93970; 96365; 96375; 97110; 97116; 97161; 97530; 97535; 99291; G0378; J0696; J1644; J1815; J2270; J2405; J2543; J7030; P9016

== ENCOUNTER 2019-01-14 21:47 | Inpatient (IN) | payer MEDICAID ==
[~2019-01-14] VITALS: Ht 170.2 cm; Wt 56.6 kg
[~2019-01-14 21:47] MED LIST changes: +HYDR-3972 PO; -LEVO250T58 PO; -LISI-600 PO; -METF-438 PO; +NITR100C11 PO; +ONDA8TAB12 PO; -OXYB5TAB4 PO
--- NOTE | 2019-01-14 22:53 | NUR ---
Patient resting comfortably on johnny carlisle nurse did straight cath. I will continue to monitor.
[2019-01-14 23:03] LABS: CLARITY,URINE TURBID (Clear); UA COLLECTION TYPE STRAIGHT CATH
[2019-01-14 23:05] LABS: COLOR,URINE Brown (Yellow)
[2019-01-14 23:09] LABS: RBC,URINE TNTC /HPF (0-2); WBC,URINE 30-50 /HPF (0-4)
[2019-01-14 23:12] LABS: AMORPHOUS URATES 4+; BACTERIA,URINE 4+ /HPF (Neg); SQUAMOUS EPITHELIAL CELL,UR MODERATE /LPF (FEW)
--- NOTE | 2019-01-15 00:30 | NUR ---
pt walked around nurses station with a steady gait. oxygen saturation was at 91%, dropped to 89% at end of walk.
[2019-01-15 01:10] LABS: BASOPHILS % (AUTO) 0 % (0-1); EOSINOPHILS % (AUTO) 0 % (0-6); HEMATOCRIT 25.5 % (35.0-45.0); HEMOGLOBIN 8.2 g/dl (12.0-16.0); LYMPHOCYTES # (AUTO) 0.5 X10'3 (1.1-4.8); LYMPHOCYTES % (AUTO) 1.9 % (21-51); MEAN CORPUSCULAR HEMOGLOBIN 29.8 PG (27.0-31.0); MEAN CORPUSCULAR HGB CONC 32.4 g/dL (33.0-36.5); MEAN CORPUSCULAR VOLUME 92.2 FL (78-98); MEAN PLATELET VOLUME 7.7 FL (7.4-10.4); MONOCYTES # (AUTO) 0.5 X10'3 (0-0.9); MONOCYTES % (AUTO) 1.9 % (2-12); NEUTROPHILS # (AUTO) 22.7 X10'3 (1.8-7.7); NEUTROPHILS % (AUTO) 96.2 % (42-75); PLATELET COUNT 236 X10'3 (140-440); RED BLOOD COUNT 2.76 X10'6 (4.20-5.60); RED CELL DISTRIBUTION WIDTH 18.6 % (11.5-14.5); WHITE BLOOD COUNT 23.7 X10'3 (4.5-11.0)
[2019-01-15] MEDS ORDERED: piperacillin/tazo 3.375gm/50ml 50 ML IV ONE (01:10)
[2019-01-15 01:14] LABS: PARTIAL THROMBOPLASTIN TIME 43 SECONDS (22-32)
[2019-01-15 01:17] LABS: ALANINE AMINOTRANSFERASE 16 U/L (12-78); ALBUMIN 1.9 G/DL (3.4-5.0); ALBUMIN/GLOBULIN RATIO 0.4 (1.1-1.5); ALKALINE PHOSPHATASE 111 IU/L (46-116); ANION GAP 11 (8-16); ASPARTATE AMINO TRANSFERASE 6 U/L (10-37); BILIRUBIN,TOTAL 0.4 MG/DL (0.1-1.0); BLOOD UREA NITROGEN 43 MG/DL (7-18); BUN/CREATININE RATIO 22.3 (6.6-38.0); CALCIUM 8.7 MG/DL (8.5-10.1); CHLORIDE 101 MMOL/L (99-107); CREATININE 1.93 MG/DL (0.40-0.90); GLUCOSE 188 MG/DL (70-104); MAGNESIUM 1.6 MG/DL (1.5-2.4); POTASSIUM 4.5 MMOL/L (3.5-5.1); SODIUM 132 MMOL/L (135-145); TOTAL CARBON DIOXIDE 19.6 MMOL/L (24-32); TOTAL PROTEIN 6.8 G/DL (6.4-8.2); eGFR 26 ML/MIN
[2019-01-15 02:07] LABS: ANISOCYTOSIS 2+; PLATELET ESTIMATE NORMAL
[2019-01-15] MEDS ORDERED: acetaminophen 325mg tablet PO PRN (02:10)
[2019-01-15] MEDS ORDERED: ondansetron/PF 4mg/2ml inj IV PRN (02:10)
[2019-01-15] MEDS ORDERED: magnesium hydroxide 30ml (MOM) UD suspension PO PRN (02:10)
[2019-01-15] MEDS ORDERED: mag hydrox/Alum hydrox/simeth 30ml oral suspension PO PRN (02:10)
[2019-01-15] MEDS ORDERED: morphine 2 MG/ML inj. syringe IV PRN (02:10)
[2019-01-15] MEDS: normal saline 1000ml 1,000 ML IV SCH ×3 (02:39→22:07)
[2019-01-15] MEDS: morphine 2 MG/ML inj. syringe IV PRN ×4 (02:39→22:31)
--- NOTE | 2019-01-15 02:51 | NUR ---
Patient incontinent of urine, linen cng and pericare provided.
[2019-01-15 03:30] VITALS: BP 112/64
[2019-01-15 06:53] VITALS: BP 156/69
[2019-01-15] MEDS: CefTRIAXone/D5W-Rocephin 1gm 50 ML IV SCH (07:27)
[2019-01-15 10:49] VITALS: BP 114/61
[2019-01-15 18:00] VITALS: BP 123/63
[2019-01-15] MEDS: lactobacillus rhamnosus 10,000 MMU CELLS/CAPSULE PO SCH (21:00)
[2019-01-15 22:00] VITALS: BP 162/92
[2019-01-16] VITALS (12 sets, daily range): BP systolic 107–151; BP diastolic 51–97
[2019-01-16] MEDS: HYDROcodone/acetaminophen 10/325mg tab PO PRN ×3 (00:13→17:56)
[2019-01-16] MEDS: normal saline 1000ml 1,000 ML IV SCH ×2 (00:56→11:49)
[2019-01-16 05:41] LABS: BASOPHILS % (AUTO) 0.2 % (0-1); EOSINOPHILS # (AUTO) 0.1 X10'3 (0-0.9); EOSINOPHILS % (AUTO) 0.4 % (0-6); HEMOGLOBIN 7.1 g/dl (12.0-16.0); LYMPHOCYTES # (AUTO) 0.6 X10'3 (1.1-4.8); MEAN CORPUSCULAR HEMOGLOBIN 29.9 PG (27.0-31.0); MEAN CORPUSCULAR HGB CONC 32.1 g/dL (33.0-36.5); MEAN PLATELET VOLUME 7.5 FL (7.4-10.4); MONOCYTES # (AUTO) 0.4 X10'3 (0-0.9); MONOCYTES % (AUTO) 3.1 % (2-12); NEUTROPHILS # (AUTO) 12.8 X10'3 (1.8-7.7); NEUTROPHILS % (AUTO) 92.3 % (42-75); PLATELET COUNT 190 X10'3 (140-440); RED BLOOD COUNT 2.36 X10'6 (4.20-5.60); RED CELL DISTRIBUTION WIDTH 18.4 % (11.5-14.5); WHITE BLOOD COUNT 13.9 X10'3 (4.5-11.0)
--- NOTE | 2019-01-16 06:04 | NUR ---
Notified MD Richter of critical value Hematocrit of 22.0. No new orders at this time.
[2019-01-16 06:11] LABS: ALANINE AMINOTRANSFERASE 15 U/L (12-78); ALBUMIN 1.5 G/DL (3.4-5.0); ALBUMIN/GLOBULIN RATIO 0.3 (1.1-1.5); ALKALINE PHOSPHATASE 90 IU/L (46-116); ANION GAP 9 (8-16); ASPARTATE AMINO TRANSFERASE 11 U/L (10-37); BILIRUBIN,TOTAL 0.2 MG/DL (0.1-1.0); BLOOD UREA NITROGEN 38 MG/DL (7-18); BUN/CREATININE RATIO 21.6 (6.6-38.0); CALCIUM 8.5 MG/DL (8.5-10.1); CHLORIDE 105 MMOL/L (99-107); CREATININE 1.76 MG/DL (0.40-0.90); GLUCOSE 88 MG/DL (70-104); POTASSIUM 4.1 MMOL/L (3.5-5.1); SODIUM 134 MMOL/L (135-145); TOTAL CARBON DIOXIDE 20.1 MMOL/L (24-32); TOTAL PROTEIN 5.8 G/DL (6.4-8.2); eGFR 29 ML/MIN
--- NOTE | 2019-01-16 06:41 | NUR ---
reported to days. noted pt resting. NPO for possible IR procedure this am.
[2019-01-16] MEDS: lactobacillus rhamnosus 10,000 MMU CELLS/CAPSULE PO SCH ×2 (08:38→20:00)
[2019-01-16] MEDS: CefTRIAXone/D5W-Rocephin 1gm 50 ML IV SCH (08:38)
[2019-01-16] MEDS ORDERED: iohexol 300 MG/1 ML 50ml polymer ONE (14:10)
[2019-01-16] MEDS ORDERED: LIDOcaine 1%/PF 5ML 10 MG/ML VIAL ONE ×2 (14:25→15:22)
[2019-01-16] MEDS ORDERED: fentaNYL/PF 50MCG/1 ML 2ML syringe ONE ×2 (14:33→15:22)
[2019-01-16] MEDS ORDERED: midazolam 2 mg/2 ml injection ONE ×2 (14:33→15:22)
--- NOTE | 2019-01-16 16:54 | NUR ---
pt returned from IR s/p nephrostomy tubes placement. Bedbath performed d/t pt soiling herself during procedure. VS stable.
--- NOTE | 2019-01-16 16:57 | NUR ---
pts friend/significant other: Hector Waldron [phone]
[2019-01-17] MEDS: HYDROcodone/acetaminophen 10/325mg tab PO PRN ×4 (01:58→22:34)
[2019-01-17 02:00] VITALS: BP 133/81
[2019-01-17] MEDS: morphine 4 MG/ML inj SYRINge IV PRN ×2 (04:35→11:43)
[2019-01-17] MEDS: normal saline 1000ml 1,000 ML IV SCH ×3 (05:12→17:40)
[2019-01-17 06:00] VITALS: BP 138/60
[2019-01-17 06:04] LABS: BASOPHILS % (AUTO) 0.3 % (0-1); EOSINOPHILS # (AUTO) 0.1 X10'3 (0-0.9); EOSINOPHILS % (AUTO) 0.6 % (0-6); HEMATOCRIT 23.1 % (35.0-45.0); HEMOGLOBIN 7.5 g/dl (12.0-16.0); LYMPHOCYTES # (AUTO) 0.3 X10'3 (1.1-4.8); LYMPHOCYTES % (AUTO) 3.3 % (21-51); MEAN CORPUSCULAR HEMOGLOBIN 30.4 PG (27.0-31.0); MEAN CORPUSCULAR HGB CONC 32.6 g/dL (33.0-36.5); MEAN CORPUSCULAR VOLUME 93.3 FL (78-98); MEAN PLATELET VOLUME 7.6 FL (7.4-10.4); MONOCYTES # (AUTO) 0.4 X10'3 (0-0.9); MONOCYTES % (AUTO) 3.5 % (2-12); NEUTROPHILS # (AUTO) 9.4 X10'3 (1.8-7.7); NEUTROPHILS % (AUTO) 92.3 % (42-75); PLATELET COUNT 197 X10'3 (140-440); RED BLOOD COUNT 2.47 X10'6 (4.20-5.60); RED CELL DISTRIBUTION WIDTH 18.4 % (11.5-14.5); WHITE BLOOD COUNT 10.1 X10'3 (4.5-11.0)
[2019-01-17 06:56] LABS: ALANINE AMINOTRANSFERASE 19 U/L (12-78); ALBUMIN 1.5 G/DL (3.4-5.0); ALBUMIN/GLOBULIN RATIO 0.3 (1.1-1.5); ALKALINE PHOSPHATASE 92 IU/L (46-116); ANION GAP 11 (8-16); ASPARTATE AMINO TRANSFERASE 16 U/L (10-37); BILIRUBIN,TOTAL 0.2 MG/DL (0.1-1.0); BLOOD UREA NITROGEN 28 MG/DL (7-18); BUN/CREATININE RATIO 17.1 (6.6-38.0); CALCIUM 8.6 MG/DL (8.5-10.1); CHLORIDE 106 MMOL/L (99-107); CREATININE 1.64 MG/DL (0.40-0.90); GLUCOSE 76 MG/DL (70-104); POTASSIUM 4.3 MMOL/L (3.5-5.1); SODIUM 136 MMOL/L (135-145); TOTAL CARBON DIOXIDE 18.6 MMOL/L (24-32); TOTAL PROTEIN 5.9 G/DL (6.4-8.2); eGFR 32 ML/MIN
[2019-01-17] MEDS ORDERED: vancomycin/NS 1 GM ADD-VANTAGE 250 ML IV SCH ×2 (08:00→08:04)
[2019-01-17] MEDS: lactobacillus rhamnosus 10,000 MMU CELLS/CAPSULE PO SCH ×2 (08:25→19:33)
[2019-01-17] MEDS: CefTRIAXone/D5W-Rocephin 1gm 50 ML IV SCH (08:25)
[2019-01-17 10:00] VITALS: BP 147/78
[2019-01-17 18:00] VITALS: BP 153/82
--- NOTE | 2019-01-17 18:00 | NUR ---
Received report from Amelia GODOY. assumed care of patient.
--- NOTE | 2019-01-17 18:03 | NUR ---
Problems reprioritized. Patient report given, questions answered & plan of care reviewed with JOSE ALFREDO RN.
[2019-01-17 22:00] VITALS: BP 142/57
[2019-01-18] VITALS (7 sets, daily range): BP systolic 121–158; BP diastolic 67–78
[2019-01-18] MEDS: normal saline 1000ml 1,000 ML IV SCH (03:02)
[2019-01-18] MEDS: HYDROcodone/acetaminophen 10/325mg tab PO PRN ×4 (03:39→17:17)
--- NOTE | 2019-01-18 06:10 | NUR ---
Patient in room ORTHO 4016. I have received report from JOSE ALFREDO GODOY and had the opportunity to ask questions and assume patient care.
--- NOTE | 2019-01-18 06:20 | NUR ---
Gave report to Amelia GODOY.
[2019-01-18] MEDS: CefTRIAXone/D5W-Rocephin 1gm 50 ML IV SCH (07:18)
[2019-01-18] MEDS: lactobacillus rhamnosus 10,000 MMU CELLS/CAPSULE PO SCH (07:18)
[2019-01-18 08:05] LABS: BASOPHILS % (AUTO) 0.3 % (0-1); EOSINOPHILS # (AUTO) 0.1 X10'3 (0-0.9); EOSINOPHILS % (AUTO) 1.4 % (0-6); LYMPHOCYTES # (AUTO) 0.5 X10'3 (1.1-4.8); LYMPHOCYTES % (AUTO) 7.5 % (21-51); MEAN CORPUSCULAR HEMOGLOBIN 30.7 PG (27.0-31.0); MEAN CORPUSCULAR HGB CONC 32.8 g/dL (33.0-36.5); MEAN CORPUSCULAR VOLUME 93.6 FL (78-98); MONOCYTES # (AUTO) 0.3 X10'3 (0-0.9); NEUTROPHILS # (AUTO) 5.9 X10'3 (1.8-7.7); NEUTROPHILS % (AUTO) 85.8 % (42-75); PLATELET COUNT 172 X10'3 (140-440); RED BLOOD COUNT 2.26 X10'6 (4.20-5.60); WHITE BLOOD COUNT 6.9 X10'3 (4.5-11.0)
[2019-01-18 08:09] LABS: ALANINE AMINOTRANSFERASE 21 U/L (12-78); ALBUMIN 1.4 G/DL (3.4-5.0); ALBUMIN/GLOBULIN RATIO 0.3 (1.1-1.5); ALKALINE PHOSPHATASE 85 IU/L (46-116); ANION GAP 9 (8-16); ASPARTATE AMINO TRANSFERASE 13 U/L (10-37); BILIRUBIN,TOTAL 0.1 MG/DL (0.1-1.0); BLOOD UREA NITROGEN 26 MG/DL (7-18); BUN/CREATININE RATIO 16.7 (6.6-38.0); CALCIUM 8.6 MG/DL (8.5-10.1); CHLORIDE 107 MMOL/L (99-107); CREATININE 1.56 MG/DL (0.40-0.90); GLUCOSE 91 MG/DL (70-104); HEMATOCRIT 21.2 % (35.0-45.0); POTASSIUM 4.5 MMOL/L (3.5-5.1); SODIUM 135 MMOL/L (135-145); TOTAL CARBON DIOXIDE 19.5 MMOL/L (24-32); TOTAL PROTEIN 5.9 G/DL (6.4-8.2); eGFR 34 ML/MIN
--- NOTE | 2019-01-18 08:25 | NUR ---
PAGER ID: [phone] MESSAGE: BRIANNA [phone] RE: PENG [phone] CRITICAL H&H 11/11.2
[2019-01-18] MEDS: morphine 4 MG/ML inj SYRINge IV PRN ×3 (09:36→17:59)
--- NOTE | 2019-01-18 17:55 | NUR ---
DONTE JOLLEY WOUND PHOTO.
--- NOTE | 2019-01-18 18:05 | NUR ---
Problems reprioritized. Patient report given, questions answered & plan of care reviewed with JOSE ALFREDO RN.
--- NOTE | 2019-01-18 18:15 | NUR ---
Received report from Amelia GODOY. assumed care of patient.
[2019-01-20] MEDS ORDERED: VANCOMYCIN LEVEL IV ONE (07:30)
== END 2019-01-18 18:50 | disposition home health service (06) | DRG 468 ==
LOC: ER 21:48 → ORTHO 4S 01-15 03:28
PROVIDERS: ADMIT Internal Medicine; ATTEND Internal Medicine
PROC: 0T9430Z Drainage of Left Kidney Pelvis with Drainage Device, Percutaneous Approach (ICD-10-PCS; principal; 2019-01-16)
PROC: 0T9330Z Drainage of Right Kidney Pelvis with Drainage Device, Percutaneous Approach (ICD-10-PCS; 2019-01-16)
PROC: BT131ZZ Fluoroscopy of Bilateral Kidneys using Low Osmolar Contrast (ICD-10-PCS; 2019-01-16)
PROC: 30233N1 Transfusion of Nonautologous Red Blood Cells into Peripheral Vein, Percutaneous Approach (ICD-10-PCS; 2019-01-18)
DX: N32.2 Vesical fistula, not elsewhere classified (principal); E43 Unspecified severe protein-calorie malnutrition; E11.22 Type 2 diabetes mellitus with diabetic chronic kidney disease; C67.9 Malignant neoplasm of bladder, unspecified; N13.6 Pyonephrosis; N18.3 Chronic kidney disease, stage 3 (moderate); D63.8 Anemia in other chronic diseases classified elsewhere; I12.9 Hypertensive chronic kidney disease with stage 1 through stage 4 chronic kidney disease, or unspecified chronic kidney disease; R32 Unspecified urinary incontinence; Z51.5 Encounter for palliative care; Q63.1 Lobulated, fused and horseshoe kidney; Z92.21 Personal history of antineoplastic chemotherapy; Z68.1 Body mass index [BMI] 19.9 or less, adult; Z88.1 Allergy status to other antibiotic agents
CPT/HCPCS: 36415; 50432; 74176; 80053; 81001; 83605; 83735; 84145; 85025; 85610; 85730; 86885; 86900; 86901; 86922; 87040; 87077; 87081; 87088; 87186; 93005; 96365; 96375; 97110; 97116; 97162; 97530; 99152; 99153; 99285; C1729; C1769; C1894; G0378; J0696; J2250; J2270; J2405; J2543; J3010; J3370; J7030; P9016; Q9967

== ENCOUNTER 2019-01-22 03:32 | Emergency (ER) | payer MEDICAID ==
[~2019-01-22] VITALS: Ht 170.2 cm; Wt 73.0 kg
--- NOTE | 2019-01-22 04:12 | NUR ---
RIGHT NEPHROSTOMY DRAINING SINGH RED URINE OPSITE INTACT WITH OLD BLOOD DRAINAGE NOTED . APPROX 5 CC SPECIMAN OBTAINED FOR UA & CX THE LEFT NEPHROSTOMY TUBE SPECIMAN SLOW TO DRAIN. NO SPECIMAN OBTAINED FROM THE LEFT SIDE
--- NOTE | 2019-01-22 04:25 | NUR ---
PT HAS A PORT A CATH AND STATES SHE IS RECEIVING CHEMO FOR BLADDER CA, SHE STATES SHE ATTENDS THE CA CENTER AT [facility]. STATES SHE TAKES " A LITTLE WHITE PILL FOR PAIN " STATES SHE CAME TODAY BC THE PAIN IN HER LEGS AND BACK HAS INCREASED TODAY WITH RELIEF NOT BEING MET WITH CURRENT MEDICATION PLAN
[2019-01-22] MEDS ORDERED: normal saline 1000ML IV soln IVB ONE (04:45)
[2019-01-22] MEDS ORDERED: morphine 4 MG/ML inj SYRINge IV ONE ×2 (04:45→06:20)
[2019-01-22] MEDS ORDERED: pantoprazole 40 MG vial IV ONE (04:45)
--- NOTE | 2019-01-22 05:21 | NUR ---
PT IS DIFFICULT IV START - I HAVE ATTEMPTED X2 WITH SUCCESSFUL ENTRY TO THE VEIN BUT THEY BLOW WHEN ADVANCING.
[2019-01-22 05:32] LABS: BASOPHILS % (AUTO) 0.5 % (0-1); EOSINOPHILS # (AUTO) 0.1 X10'3 (0-0.9); EOSINOPHILS % (AUTO) 0.8 % (0-6); HEMATOCRIT 24.8 % (35.0-45.0); HEMOGLOBIN 8.2 g/dl (12.0-16.0); LYMPHOCYTES # (AUTO) 0.6 X10'3 (1.1-4.8); LYMPHOCYTES % (AUTO) 7.9 % (21-51); MEAN CORPUSCULAR HEMOGLOBIN 30.1 PG (27.0-31.0); MEAN CORPUSCULAR HGB CONC 33.1 g/dL (33.0-36.5); MEAN CORPUSCULAR VOLUME 90.9 FL (78-98); MEAN PLATELET VOLUME 7.9 FL (7.4-10.4); MONOCYTES # (AUTO) 0.4 X10'3 (0-0.9); MONOCYTES % (AUTO) 5.2 % (2-12); NEUTROPHILS # (AUTO) 6.4 X10'3 (1.8-7.7); NEUTROPHILS % (AUTO) 85.6 % (42-75); PLATELET COUNT 173 X10'3 (140-440); RED BLOOD COUNT 2.72 X10'6 (4.20-5.60); RED CELL DISTRIBUTION WIDTH 17.7 % (11.5-14.5); WHITE BLOOD COUNT 7.5 X10'3 (4.5-11.0)
--- NOTE | 2019-01-22 05:46 | NUR ---
IS AT BEDSIDE . EXPLAINS THAT " SOME HOW , I THINK SHE ROLED OVER THE NEPHROSTOMY TUBE ON THE RIGHT SIDE AND IT MIGHT HAVE BEEN TUGGED UPON, AND THATS PERHAPS WHY, THERE IS AN INCREASED AMOUNT OF BLOOD DRAINING ON THE RIGHT SIDE . WE HAVE BEEN WAITING FOR HOMEHEALTH TO COME TO SEE US SINCE LAST MONDAY. WE HAVE TRIED TO DRINK ALOT OF FLUIDS. " HAS MANY CONCERNS ABOUT MANAGING HIS CARE. HE APPEARS TO WANT TO BE CLEAR ON HOW SHE IS MANAGED AND WHAT NEEDS TO BE DONE TO PROIDE WHAT HIS NEEDS. HE STATES PT WAS GIVEN 2 MONTHS TO LIVE BACK IN AUGUST 2018 "
[2019-01-22 05:50] LABS: ALANINE AMINOTRANSFERASE 15 U/L (12-78); ALBUMIN 1.5 G/DL (3.4-5.0); ALBUMIN/GLOBULIN RATIO 0.3 (1.1-1.5); ALKALINE PHOSPHATASE 92 IU/L (46-116); ANION GAP 9 (8-16); ASPARTATE AMINO TRANSFERASE 11 U/L (10-37); BILIRUBIN,TOTAL 0.2 MG/DL (0.1-1.0); BLOOD UREA NITROGEN 30 MG/DL (7-18); BUN/CREATININE RATIO 17.6 (6.6-38.0); CALCIUM 9.3 MG/DL (8.5-10.1); CHLORIDE 100 MMOL/L (99-107); GLUCOSE 115 MG/DL (70-104); POTASSIUM 4.3 MMOL/L (3.5-5.1); SODIUM 130 MMOL/L (135-145); TOTAL CARBON DIOXIDE 21.4 MMOL/L (24-32); TOTAL PROTEIN 6.7 G/DL (6.4-8.2); eGFR 30 ML/MIN
--- NOTE | 2019-01-22 06:09 | NUR ---
URINE FROM EACH NEPHROSTOMY SENT TO LAB AND LABELED LEFT AND RIGHT. RIGHT NEPHROSTOMY CONTINUES TO DRAIN SINGH RED BLOOD COLORED URINE WHERE LEFT SIDE IS YELLOW WITH VERY SLIGHT BLOOD TINGE PRESENT.
--- NOTE | 2019-01-22 06:17 | NUR ---
Patient's family member stopped me in the [facility] ans states that she is still in quite a bit of pain. Patient also complains of pain but does not appear outwardly distressed. Dr. Dale is notified and she orders 4mg of morphine.
[2019-01-22 06:18] LABS: CLARITY,URINE CLOUDY (Clear); COLOR,URINE RED (Yellow); GLUCOSE, URINE 100 mg/dl (Neg); KETONES,URINE TRACE mg/dl (Neg); LEUKOCYTE ESTERASE ,URINE MODERATE (Neg); NITRITES, URINE POSITIVE (Neg); OCCULT BLOOD,URINE LARGE (Neg); PROTEIN,URINE 100 mg/dl (Neg)
[2019-01-22 06:22] LABS: UA COLLECTION TYPE OTHER
[2019-01-22 06:28] LABS: BACTERIA,URINE NONE SEEN /HPF (Neg); RBC,URINE TNTC /HPF (0-2); SQUAMOUS EPITHELIAL CELL,UR NONE SEEN /LPF (FEW)
[2019-01-22 06:29] LABS: MUCUS STRANDS NONE SEEN /LPF (Neg)
[2019-01-22 06:37] LABS: CLARITY,URINE SLIGHTLY CLOUDY (Clear); COLOR,URINE STRAW (Yellow); GLUCOSE, URINE NEGATIVE (Neg); KETONES,URINE NEGATIVE (Neg); LEUKOCYTE ESTERASE ,URINE LARGE (Neg); NITRITES, URINE NEGATIVE (Neg); OCCULT BLOOD,URINE LARGE (Neg); PH,URINE 7.5 (4.8-8.0); PROTEIN,URINE 100 mg/dl (Neg); UROBILINOGEN,URINE 0.2 E.U/dL (0.2-1.0)
[2019-01-22 06:39] LABS: UA COLLECTION TYPE OTHER
[2019-01-22 06:50] LABS: BACTERIA,URINE NONE SEEN /HPF (Neg); MUCUS STRANDS FEW /LPF (Neg); SQUAMOUS EPITHELIAL CELL,UR NONE SEEN /LPF (FEW); WBC CLUMPS,URINE FEW /HPF (NEGATIVE)
[2019-01-22 06:51] LABS: RBC,URINE 20-50 /HPF (0-2); WBC,URINE 30-50 /HPF (0-4)
[2019-01-22] MEDS ORDERED: CefTRIAXone 2gm/D5W 50ml 50 ML IV ONE (07:00)
[2019-01-22] MEDS ORDERED: CEPH-572 PO (07:57)
[2019-01-22] MEDS ORDERED: ONDA4TAB6 PO (08:03)
[2019-01-22] MEDS ORDERED: HYDR-4353 PO (08:04)
[2019-01-22] MEDS ORDERED: HYDROcodone/acetaminophen 10/325mg tab PO ONE (08:05)
[2019-01-22] MEDS ORDERED: ondansetron/PF 4mg/2ml inj IV ONE (08:05)
[2019-01-22 08:26] VITALS: BP 136/74
== END 2019-01-22 08:43 | disposition home or self-care (01) ==
LOC: ER 03:32
DX: N39.0 Urinary tract infection, site not specified (principal); G89.29 Other chronic pain; C67.9 Malignant neoplasm of bladder, unspecified; N82.1 Other female urinary-genital tract fistulae; D64.9 Anemia, unspecified; I10 Essential (primary) hypertension; E11.9 Type 2 diabetes mellitus without complications; Z88.1 Allergy status to other antibiotic agents; Z79.899 Other long term (current) drug therapy
CPT/HCPCS: 36415; 80053; 81001; 85025; 87088; 96365; 96375; 96376; 99283; C9113; J0696; J2270; J2405; J7030

== ENCOUNTER 2019-01-29 15:26 | Emergency (ER) | payer MEDICAID ==
[~2019-01-29] VITALS: Ht 172.7 cm; Wt 140.0 kg
[~2019-01-29 15:26] MED LIST changes: +CEPH-572 PO; +HYDR-4353 PO; +ONDA4TAB6 PO
[2019-01-29 17:32] LABS: BASOPHILS % (AUTO) 0.4 % (0-1); EOSINOPHILS # (AUTO) 0.1 X10'3 (0-0.9); EOSINOPHILS % (AUTO) 0.9 % (0-6); HEMATOCRIT 23.9 % (35.0-45.0); HEMOGLOBIN 7.9 g/dl (12.0-16.0); LYMPHOCYTES # (AUTO) 0.7 X10'3 (1.1-4.8); LYMPHOCYTES % (AUTO) 8.7 % (21-51); MEAN CORPUSCULAR HGB CONC 33.1 g/dL (33.0-36.5); MEAN CORPUSCULAR VOLUME 90.7 FL (78-98); MEAN PLATELET VOLUME 7.6 FL (7.4-10.4); MONOCYTES # (AUTO) 0.4 X10'3 (0-0.9); MONOCYTES % (AUTO) 5.4 % (2-12); NEUTROPHILS # (AUTO) 6.6 X10'3 (1.8-7.7); NEUTROPHILS % (AUTO) 84.6 % (42-75); PLATELET COUNT 217 X10'3 (140-440); RED BLOOD COUNT 2.64 X10'6 (4.20-5.60); RED CELL DISTRIBUTION WIDTH 17.3 % (11.5-14.5); WHITE BLOOD COUNT 7.9 X10'3 (4.5-11.0)
--- NOTE | 2019-01-29 17:35 | NUR ---
PT HERE R/T INCRESE LEG SWELLING AND PAIN IN LEGS HOME HEALTH NURSE TOLD THEM TO COME IN THE ER IF SWELLING AND PAIN INCREASES. WAS + FOR BLOOD CLOT IN R LEG IN NOV.
[2019-01-29 17:49] LABS: ALANINE AMINOTRANSFERASE 12 U/L (12-78); ALBUMIN 1.7 G/DL (3.4-5.0); ALBUMIN/GLOBULIN RATIO 0.3 (1.1-1.5); ALKALINE PHOSPHATASE 101 IU/L (46-116); ANION GAP 9 (8-16); ASPARTATE AMINO TRANSFERASE 15 U/L (10-37); BILIRUBIN,TOTAL 0.1 MG/DL (0.1-1.0); BLOOD UREA NITROGEN 32 MG/DL (7-18); BUN/CREATININE RATIO 17.2 (6.6-38.0); CALCIUM 8.8 MG/DL (8.5-10.1); CHLORIDE 96 MMOL/L (99-107); CREATININE 1.86 MG/DL (0.40-0.90); GLUCOSE 95 MG/DL (70-104); POTASSIUM 4.1 MMOL/L (3.5-5.1); SODIUM 126 MMOL/L (135-145); TOTAL CARBON DIOXIDE 21.4 MMOL/L (24-32); TOTAL PROTEIN 7.1 G/DL (6.4-8.2); eGFR 27 ML/MIN
[2019-01-29 18:35] LABS: CLARITY,URINE CLEAR (Clear); CLARITY,URINE CLOUDY (Clear); COLOR,URINE STRAW (Yellow); GLUCOSE, URINE NEGATIVE (Neg); KETONES,URINE NEGATIVE (Neg); LEUKOCYTE ESTERASE ,URINE LARGE (Neg); LEUKOCYTE ESTERASE ,URINE SMALL (Neg); NITRITES, URINE NEGATIVE (Neg); OCCULT BLOOD,URINE LARGE (Neg); OCCULT BLOOD,URINE NEGATIVE (Neg); PH,URINE 6.5 (4.8-8.0); PROTEIN,URINE 100 mg/dl (Neg); PROTEIN,URINE NEGATIVE (Neg); UROBILINOGEN,URINE 0.2 E.U/dL (0.2-1.0)
[2019-01-29 18:36] LABS: UA COLLECTION TYPE OTHER
[2019-01-29 18:37] LABS: COLOR,URINE PINK (Yellow); UA COLLECTION TYPE OTHER
[2019-01-29 18:49] LABS: MUCUS STRANDS FEW /LPF (Neg); SQUAMOUS EPITHELIAL CELL,UR FEW /LPF (FEW); TRANSITIONAL EPI CELLS,URINE FEW /HPF; WBC,URINE 0-4 /HPF (0-4)
[2019-01-29 18:50] LABS: BACTERIA,URINE FEW /HPF (Neg); RBC,URINE 0-2 /HPF (0-2)
[2019-01-29 18:51] LABS: MUCUS STRANDS FEW /LPF (Neg); SQUAMOUS EPITHELIAL CELL,UR FEW /LPF (FEW); TRANSITIONAL EPI CELLS,URINE FEW /HPF
[2019-01-29 18:52] LABS: RBC,URINE 20-50 /HPF (0-2); WBC,URINE 0-4 /HPF (0-4)
[2019-01-29 18:53] LABS: BACTERIA,URINE FEW /HPF (Neg)
[2019-01-29 18:54] LABS: AMORPHOUS PHOSPHATES 1+
[2019-01-29 19:17] LABS: TROPONIN I < 0.04 NG/ML (0.0-0.05)
[2019-01-29] MEDS ORDERED: FURO-150 PO (19:57)
[2019-01-29] MEDS ORDERED: furosemide 20MG tablet PO ONE (20:00)
[2019-01-29 20:13] VITALS: BP 109/58
== END 2019-01-29 20:18 | disposition home or self-care (01) ==
LOC: ER 15:26
DX: R60.0 Localized edema (principal); I10 Essential (primary) hypertension; E11.9 Type 2 diabetes mellitus without complications; Z88.1 Allergy status to other antibiotic agents; Z79.899 Other long term (current) drug therapy
CPT/HCPCS: 36415; 80053; 81001; 83880; 84484; 85025; 85610; 87077; 87088; 87186; 99284

== ENCOUNTER 2019-02-02 10:35 | Emergency (ER) | payer MEDICAID ==
[~2019-02-02] VITALS: Ht 170.2 cm; Wt 81.0 kg
[~2019-02-02 10:35] MED LIST changes: +FURO-150 PO
[2019-02-02 11:40] LABS: BASOPHILS % (AUTO) 0.3 % (0-1); EOSINOPHILS # (AUTO) 0.1 X10'3 (0-0.9); EOSINOPHILS % (AUTO) 0.5 % (0-6); HEMOGLOBIN 8.4 g/dl (12.0-16.0); LYMPHOCYTES # (AUTO) 0.4 X10'3 (1.1-4.8); LYMPHOCYTES % (AUTO) 3.4 % (21-51); MEAN CORPUSCULAR HEMOGLOBIN 29.3 PG (27.0-31.0); MEAN CORPUSCULAR HGB CONC 32.2 g/dL (33.0-36.5); MEAN CORPUSCULAR VOLUME 90.9 FL (78-98); MEAN PLATELET VOLUME 7.5 FL (7.4-10.4); MONOCYTES # (AUTO) 0.4 X10'3 (0-0.9); MONOCYTES % (AUTO) 3.8 % (2-12); PLATELET COUNT 253 X10'3 (140-440); RED BLOOD COUNT 2.85 X10'6 (4.20-5.60); RED CELL DISTRIBUTION WIDTH 17.5 % (11.5-14.5)
[2019-02-02 11:47] LABS: CLARITY,URINE CLEAR (Clear); COLOR,URINE YELLOW (Yellow); GLUCOSE, URINE NEGATIVE (Neg); KETONES,URINE NEGATIVE (Neg); LEUKOCYTE ESTERASE ,URINE SMALL (Neg); NITRITES, URINE NEGATIVE (Neg); OCCULT BLOOD,URINE NEGATIVE (Neg); PROTEIN,URINE NEGATIVE (Neg); URINE HCG NEGATIVE (NEG); UROBILINOGEN,URINE 0.2 E.U/dL (0.2-1.0)
[2019-02-02 11:53] LABS: ALANINE AMINOTRANSFERASE 14 U/L (12-78); ALBUMIN 1.8 G/DL (3.4-5.0); ALBUMIN/GLOBULIN RATIO 0.3 (1.1-1.5); ALKALINE PHOSPHATASE 126 IU/L (46-116); ANION GAP 11 (8-16); ASPARTATE AMINO TRANSFERASE 12 U/L (10-37); BILIRUBIN,TOTAL 0.2 MG/DL (0.1-1.0); BLOOD UREA NITROGEN 41 MG/DL (7-18); BUN/CREATININE RATIO 19.8 (6.6-38.0); CHLORIDE 98 MMOL/L (99-107); CREATININE 2.07 MG/DL (0.40-0.90); GLUCOSE 102 MG/DL (70-104); POTASSIUM 3.1 MMOL/L (3.5-5.1); SODIUM 131 MMOL/L (135-145); TOTAL CARBON DIOXIDE 22.4 MMOL/L (24-32); TOTAL PROTEIN 7.2 G/DL (6.4-8.2); eGFR 24 ML/MIN
[2019-02-02 11:54] LABS: UA COLLECTION TYPE OTHER
[2019-02-02 11:56] LABS: COLOR,URINE RED (Yellow); UA COLLECTION TYPE OTHER
[2019-02-02 11:57] LABS: CLARITY,URINE BLOODY (Clear)
[2019-02-02 11:58] LABS: CALCIUM 8.7 MG/DL (8.5-10.1)
[2019-02-02 11:59] LABS: BACTERIA,URINE FEW /HPF (Neg); RBC,URINE 0-2 /HPF (0-2); SQUAMOUS EPITHELIAL CELL,UR FEW /LPF (FEW); WBC CLUMPS,URINE FEW /HPF (NEGATIVE)
[2019-02-02 12:08] LABS: WBC,URINE 30-50 /HPF (0-4)
[2019-02-02 12:09] LABS: BACTERIA,URINE FEW /HPF (Neg); MUCUS STRANDS FEW /LPF (Neg); RBC,URINE TNTC /HPF (0-2); SQUAMOUS EPITHELIAL CELL,UR NONE SEEN /LPF (FEW)
[2019-02-02 12:10] LABS: WBC CLUMPS,URINE FEW /HPF (NEGATIVE)
[2019-02-02 13:02] VITALS: BP 109/55
--- NOTE | 2019-02-02 13:04 | NUR ---
DR SEGOVIA INFORMED OF PT 10/10 RIGHT LEG PAIN, RECEIVED VERBAL ORDER FOR ONCE DOSE OF NORCO [id number]
[2019-02-02] MEDS ORDERED: HYDROcodone/acetaminophen 10/325mg tab PO ONE (13:05)
== END 2019-02-02 13:13 | disposition home or self-care (01) ==
LOC: ER 10:36
DX: N32.9 Bladder disorder, unspecified (principal); R31.9 Hematuria, unspecified; I10 Essential (primary) hypertension; E11.9 Type 2 diabetes mellitus without complications; Z90.89 Acquired absence of other organs; Z88.1 Allergy status to other antibiotic agents; Z79.899 Other long term (current) drug therapy
CPT/HCPCS: 36415; 80053; 81001; 81025; 85025; 85610; 87088; 99284

== ENCOUNTER 2019-02-10 09:12 | Emergency (ER) | payer MEDICAID ==
[~2019-02-10] VITALS: Ht 170.2 cm; Wt 82.0 kg
[~2019-02-10 09:12] MED LIST changes: -CEPH-572 PO
[2019-02-10 10:10] LABS: BASOPHILS # (AUTO) 0.1 X10'3 (0-0.2); BASOPHILS % (AUTO) 0.4 % (0-1); EOSINOPHILS % (AUTO) 0 % (0-6); HEMATOCRIT 27.6 % (35.0-45.0); HEMOGLOBIN 8.8 g/dl (12.0-16.0); LYMPHOCYTES # (AUTO) 0.5 X10'3 (1.1-4.8); LYMPHOCYTES % (AUTO) 3.5 % (21-51); MEAN CORPUSCULAR HEMOGLOBIN 29.8 PG (27.0-31.0); MEAN CORPUSCULAR VOLUME 93.1 FL (78-98); MEAN PLATELET VOLUME 7.5 FL (7.4-10.4); MONOCYTES # (AUTO) 0.5 X10'3 (0-0.9); MONOCYTES % (AUTO) 3.5 % (2-12); NEUTROPHILS # (AUTO) 13.9 X10'3 (1.8-7.7); NEUTROPHILS % (AUTO) 92.6 % (42-75); PLATELET COUNT 246 X10'3 (140-440); RED BLOOD COUNT 2.96 X10'6 (4.20-5.60); RED CELL DISTRIBUTION WIDTH 19.2 % (11.5-14.5)
[2019-02-10 10:24] LABS: ALANINE AMINOTRANSFERASE 14 U/L (12-78); ALBUMIN 1.8 G/DL (3.4-5.0); ALBUMIN/GLOBULIN RATIO 0.3 (1.1-1.5); ALKALINE PHOSPHATASE 123 IU/L (46-116); ANION GAP 9 (8-16); ASPARTATE AMINO TRANSFERASE 13 U/L (10-37); BILIRUBIN,TOTAL 0.2 MG/DL (0.1-1.0); BLOOD UREA NITROGEN 25 MG/DL (7-18); BUN/CREATININE RATIO 12.3 (6.6-38.0); CALCIUM 9.3 MG/DL (8.5-10.1); CHLORIDE 100 MMOL/L (99-107); CREATININE 2.04 MG/DL (0.40-0.90); GLUCOSE 152 MG/DL (70-104); LIPASE 231 U/L (73-393); POTASSIUM 4.5 MMOL/L (3.5-5.1); SODIUM 131 MMOL/L (135-145); TOTAL CARBON DIOXIDE 22.3 MMOL/L (24-32); TOTAL PROTEIN 7.3 G/DL (6.4-8.2); eGFR 25 ML/MIN
[2019-02-10 10:47] LABS: PLATELET ESTIMATE NORMAL
[2019-02-10 10:48] LABS: ANISOCYTOSIS 2+; HYPOCHROMASIA 1+; POLYCHROMASIA FEW; TEAR DROP CELLS FEW
[2019-02-10] MEDS ORDERED: lactulose 20gm/30ml cup PO ONE (11:05)
--- NOTE | 2019-02-10 11:45 | NUR ---
LACTOLOSE GIVEN TO PT
[2019-02-10 12:05] VITALS: BP 135/78
[2019-02-10] MEDS ORDERED: SULF1TAB49 PO (12:10)
[2019-02-10] MEDS ORDERED: LACT10SO PO (12:10)
== END 2019-02-10 12:40 | disposition home or self-care (01) ==
LOC: ER 09:13
DX: T83.512A Infection and inflammatory reaction due to nephrostomy catheter, initial encounter (principal); C64.9 Malignant neoplasm of unspecified kidney, except renal pelvis; K59.00 Constipation, unspecified; N39.0 Urinary tract infection, site not specified; R14.0 Abdominal distension (gaseous); I10 Essential (primary) hypertension; E11.9 Type 2 diabetes mellitus without complications; Z93.6 Other artificial openings of urinary tract status; Z88.1 Allergy status to other antibiotic agents; Z79.899 Other long term (current) drug therapy; Y92.89 Other specified places as the place of occurrence of the external cause
CPT/HCPCS: 74018; 80053; 83690; 85025; 85610; 99284

== ENCOUNTER 2019-02-13 22:39 | Inpatient (IN) | payer MEDICAID ==
[~2019-02-13] VITALS: Ht 170.2 cm; Wt 81.8 kg
[~2019-02-13 22:39] MED LIST changes: +LACT10SO PO; +SULF1TAB49 PO
[2019-02-13] MEDS ORDERED: HYDROcodone/acetaminophen 10/325mg tab PO ONE (23:05)
[2019-02-13] MEDS ORDERED: ondansetron 4mg rapidly disintigrating tab PO ONE (23:05)
[2019-02-13] MEDS ORDERED: LORazepam 2 mg/ml vial IV ONE (23:35)
[2019-02-13] MEDS ORDERED: morphine 4 MG/ML inj SYRINge IV ONE (23:40)
[2019-02-13] MEDS ORDERED: ASPI-845 PO (23:57)
[2019-02-14] LABS: BASOPHILS % (AUTO) 0.3 % (0-1); EOSINOPHILS % (AUTO) 0.1 % (0-6); HEMATOCRIT 31.5 % (35.0-45.0); HEMOGLOBIN 10.3 g/dl (12.0-16.0); LYMPHOCYTES # (AUTO) 0.7 X10'3 (1.1-4.8); LYMPHOCYTES % (AUTO) 6.6 % (21-51); MEAN CORPUSCULAR HEMOGLOBIN 30.6 PG (27.0-31.0); MEAN CORPUSCULAR HGB CONC 32.8 g/dL (33.0-36.5); MEAN CORPUSCULAR VOLUME 93.3 FL (78-98); MEAN PLATELET VOLUME 7.5 FL (7.4-10.4); MONOCYTES # (AUTO) 0.6 X10'3 (0-0.9); MONOCYTES % (AUTO) 5.9 % (2-12); NEUTROPHILS # (AUTO) 8.8 X10'3 (1.8-7.7); NEUTROPHILS % (AUTO) 87.1 % (42-75); PLATELET COUNT 203 X10'3 (140-440); RED BLOOD COUNT 3.38 X10'6 (4.20-5.60); RED CELL DISTRIBUTION WIDTH 17.7 % (11.5-14.5); WHITE BLOOD COUNT 10.1 X10'3 (4.5-11.0)
[2019-02-14 00:17] LABS: ALANINE AMINOTRANSFERASE 12 U/L (12-78); ALBUMIN 1.8 G/DL (3.4-5.0); ALBUMIN/GLOBULIN RATIO 0.4 (1.1-1.5); ALKALINE PHOSPHATASE 132 IU/L (46-116); ANION GAP 10 (8-16); ASPARTATE AMINO TRANSFERASE 12 U/L (10-37); BILIRUBIN,TOTAL 0.2 MG/DL (0.1-1.0); BLOOD UREA NITROGEN 23 MG/DL (7-18); BUN/CREATININE RATIO 12.4 (6.6-38.0); CALCIUM 8.7 MG/DL (8.5-10.1); CHLORIDE 99 MMOL/L (99-107); CREATININE 1.85 MG/DL (0.40-0.90); GLUCOSE 83 MG/DL (70-104); POTASSIUM 4.5 MMOL/L (3.5-5.1); SODIUM 131 MMOL/L (135-145); TOTAL CARBON DIOXIDE 21.6 MMOL/L (24-32); TOTAL PROTEIN 6.8 G/DL (6.4-8.2); eGFR 28 ML/MIN
[2019-02-14] MEDS ORDERED: potassium CL 10mEq/100ml bag 100 ML IV PRN ×2 (00:40)
[2019-02-14] MEDS ORDERED: magnesium hydroxide 30ml (MOM) UD suspension PO PRN (00:40)
[2019-02-14] MEDS ORDERED: magnesium 2GM in 50ml NS 50 ML IV PRN (00:40)
[2019-02-14] MEDS ORDERED: magnesium 4gm in 100ml NS 100 ML IV PRN (00:40)
[2019-02-14] MEDS ORDERED: magnesium Cl slow-release 64mg tablet PO PRN (00:40)
[2019-02-14] MEDS ORDERED: potassium Cl 20 mEq SR tablet PO PRN ×2 (00:40)
[2019-02-14] MEDS ORDERED: morphine 2 MG/ML inj. syringe IV PRN (00:40)
[2019-02-14] MEDS ORDERED: acetaminophen 325mg tablet PO PRN ×2 (00:40)
[2019-02-14] MEDS ORDERED: mag hydrox/Alum hydrox/simeth 30ml oral suspension PO PRN (00:40)
--- NOTE | 2019-02-14 01:35 | NUR ---
pt placed on hospital bed for comfort
[2019-02-14] MEDS: morphine 2 MG/ML inj. syringe IV PRN ×3 (02:25→20:05)
--- NOTE | 2019-02-14 02:36 | NUR ---
pt reports she awoke in pain. administed 2mg morphine IV as per MAR - pt also adjusted in bed and pillows placed behind left side of back and buttock.
[2019-02-14] MEDS: HYDROcodone/acetaminophen 10/325mg tab PO PRN ×2 (03:16→09:12)
[2019-02-14 04:00] VITALS: BP 139/72
[2019-02-14 06:00] VITALS: BP 128/65
[2019-02-14 06:20] LABS: HEMOGLOBIN A1C 5.3 % (4.5-6.2)
--- NOTE | 2019-02-14 06:53 | NUR ---
Patient in room ORTHO 4011. I have received report from Valentin GODOY and had the opportunity to ask questions and assume patient care.
[2019-02-14] MEDS: sulfamethoxazole/trimethoprim DS (800/160mg) tablet PO SCH ×2 (07:16→20:05)
[2019-02-14] MEDS: lactulose 20gm/30ml cup PO SCH (07:16)
[2019-02-14] MEDS: aspirin 325mg tablet, delayed-release (Ecotrin) PO SCH (07:16)
[2019-02-14] MEDS: K and/or MAG REPLACEMENT MC SCH (07:18)
--- NOTE | 2019-02-14 09:26 | NUR ---
Problems reprioritized. Patient report given, questions answered & plan of care reviewed with Brandi GODOY.
--- NOTE | 2019-02-14 09:30 | NUR ---
bilateral nephrostomy drain Addendum: 02/14/19 at 0976 by Joseluis Covarrubias RN Amended: Links added.
--- NOTE | 2019-02-14 09:44 | NUR ---
Patient in room ORTHO 4011. I have received report from WALT Huggins and had the opportunity to ask questions and assume patient care.
[2019-02-14 10:00] VITALS: BP 145/68
[2019-02-14] MEDS: HYDROcodone/acetaminophen 5mg/325mg tablet PO PRN (12:37)
--- NOTE | 2019-02-14 12:47 | NUR ---
Nutrition consult: Pt admit w/ hx metastatic CA w/ concerns for spread to pelvis. Hx bilateral nephrostomy tubes from renal CA as well as off and on nausea w/ decreased appetite per MD note. Pt hx DM A1C only 5.3. Pt PO 75-100% renal diet first meal today following admit. At this time no nutrition concerns; will continue to follow for ONS needs pending further PO hx. Addendum: 02/14/19 at [address] Amended: Links added.
--- NOTE | 2019-02-14 14:56 | NUR ---
Leslie Johnson Rm 3000v She states the pain in Left leg is resolved and she would like to be discharged. WALT Paz ext [phone] +page to Margarito
--- NOTE | 2019-02-14 15:19 | NUR ---
Spoke with Nallely from [facility] who provides home health palliative care. Her ph# is [phone]
[2019-02-14 18:00] VITALS: BP 149/79
[2019-02-14 22:00] VITALS: BP 116/63
[2019-02-15] MEDS: morphine 2 MG/ML inj. syringe IV PRN ×4 (00:33→16:10)
[2019-02-15 06:00] VITALS: BP 164/84
--- NOTE | 2019-02-15 06:47 | NUR ---
Patient in room ORTHO 4011. I have received report from Brandi GODOY and had the opportunity to ask questions and assume patient care.
[2019-02-15 07:14] LABS: BASOPHILS % (AUTO) 0.2 % (0-1); EOSINOPHILS % (AUTO) 0 % (0-6); HEMATOCRIT 34.4 % (35.0-45.0); HEMOGLOBIN 11.3 g/dl (12.0-16.0); LYMPHOCYTES # (AUTO) 0.4 X10'3 (1.1-4.8); MEAN CORPUSCULAR HEMOGLOBIN 30.9 PG (27.0-31.0); MEAN CORPUSCULAR HGB CONC 32.8 g/dL (33.0-36.5); MEAN CORPUSCULAR VOLUME 94.1 FL (78-98); MONOCYTES # (AUTO) 0.4 X10'3 (0-0.9); MONOCYTES % (AUTO) 3.5 % (2-12); NEUTROPHILS # (AUTO) 11.2 X10'3 (1.8-7.7); NEUTROPHILS % (AUTO) 93.3 % (42-75); PLATELET COUNT 230 X10'3 (140-440); RED BLOOD COUNT 3.66 X10'6 (4.20-5.60); RED CELL DISTRIBUTION WIDTH 17.8 % (11.5-14.5)
[2019-02-15 07:32] LABS: ALBUMIN 1.8 G/DL (3.4-5.0); ANION GAP 10 (8-16); BLOOD UREA NITROGEN 21 MG/DL (7-18); BUN/CREATININE RATIO 11.6 (6.6-38.0); CALCIUM 9.3 MG/DL (8.5-10.1); CHLORIDE 99 MMOL/L (99-107); CREATININE 1.81 MG/DL (0.40-0.90); GLUCOSE 86 MG/DL (70-104); MAGNESIUM 1.6 MG/DL (1.5-2.4); POTASSIUM 4.8 MMOL/L (3.5-5.1); SODIUM 128 MMOL/L (135-145); TOTAL CARBON DIOXIDE 19.2 MMOL/L (24-32); eGFR 28 ML/MIN
[2019-02-15] MEDS: aspirin 325mg tablet, delayed-release (Ecotrin) PO SCH (07:42)
[2019-02-15] MEDS: lactulose 20gm/30ml cup PO SCH (07:42)
[2019-02-15] MEDS: sulfamethoxazole/trimethoprim DS (800/160mg) tablet PO SCH ×2 (07:42→20:36)
[2019-02-15] MEDS: K and/or MAG REPLACEMENT MC SCH (07:46)
[2019-02-15 10:00] VITALS: BP 152/69
[2019-02-15] MEDS: HYDROcodone/acetaminophen 10/325mg tab PO PRN ×2 (11:33→20:37)
--- NOTE | 2019-02-15 11:58 | NUR ---
Joseluis [phone] Re: Leslie Johnson. Oncologist is Dr. Ordoñez from [facility]. # [phone].
[2019-02-15 18:00] VITALS: BP 118/54
--- NOTE | 2019-02-15 18:23 | NUR ---
Problems reprioritized. Patient report given, questions answered & plan of care reviewed with Evans GODOY.
[2019-02-15] MEDS ORDERED: morphine 2 MG/ML inj. syringe IV PRN (18:55)
--- NOTE | 2019-02-15 19:00 | NUR ---
Patient in room ORTHO 4011. I have received report from Joseluis GODOY and had the opportunity to ask questions and assume patient care.
[2019-02-15] MEDS: lactobacillus rhamnosus 10,000 MMU CELLS/CAPSULE PO SCH (20:37)
[2019-02-15 22:00] VITALS: BP 112/65
[2019-02-16] MEDS: HYDROcodone/acetaminophen 10/325mg tab PO PRN ×5 (03:10→21:18)
[2019-02-16 06:00] VITALS: BP 128/57
--- NOTE | 2019-02-16 06:00 | NUR ---
Patient in room ORTHO 4011. I have received report from Evans GODOY and had the opportunity to ask questions and assume patient care.
[2019-02-16 06:24] LABS: ALBUMIN 1.5 G/DL (3.4-5.0); ANION GAP 8 (8-16); BLOOD UREA NITROGEN 20 MG/DL (7-18); BUN/CREATININE RATIO 10.8 (6.6-38.0); CALCIUM 8.6 MG/DL (8.5-10.1); CHLORIDE 103 MMOL/L (99-107); CREATININE 1.86 MG/DL (0.40-0.90); GLUCOSE 81 MG/DL (70-104); MAGNESIUM 1.6 MG/DL (1.5-2.4); POTASSIUM 4.7 MMOL/L (3.5-5.1); SODIUM 133 MMOL/L (135-145); TOTAL CARBON DIOXIDE 22.3 MMOL/L (24-32); eGFR 27 ML/MIN
[2019-02-16 06:40] LABS: BASOPHILS % (AUTO) 0.3 % (0-1); EOSINOPHILS % (AUTO) 0.2 % (0-6); HEMATOCRIT 29.1 % (35.0-45.0); HEMOGLOBIN 9.6 g/dl (12.0-16.0); LYMPHOCYTES # (AUTO) 0.5 X10'3 (1.1-4.8); LYMPHOCYTES % (AUTO) 6.6 % (21-51); MEAN CORPUSCULAR HEMOGLOBIN 31.1 PG (27.0-31.0); MEAN CORPUSCULAR HGB CONC 33.1 g/dL (33.0-36.5); MEAN PLATELET VOLUME 7.6 FL (7.4-10.4); MONOCYTES # (AUTO) 0.5 X10'3 (0-0.9); MONOCYTES % (AUTO) 6.6 % (2-12); NEUTROPHILS # (AUTO) 6.5 X10'3 (1.8-7.7); NEUTROPHILS % (AUTO) 86.3 % (42-75); PLATELET COUNT 183 X10'3 (140-440); RED BLOOD COUNT 3.09 X10'6 (4.20-5.60); RED CELL DISTRIBUTION WIDTH 18.1 % (11.5-14.5); WHITE BLOOD COUNT 7.5 X10'3 (4.5-11.0)
[2019-02-16] MEDS: lactulose 20gm/30ml cup PO SCH (07:39)
[2019-02-16] MEDS: aspirin 325mg tablet, delayed-release (Ecotrin) PO SCH (07:40)
[2019-02-16] MEDS: sulfamethoxazole/trimethoprim DS (800/160mg) tablet PO SCH ×2 (07:40→19:29)
[2019-02-16] MEDS: lactobacillus rhamnosus 10,000 MMU CELLS/CAPSULE PO SCH ×2 (07:40→19:29)
[2019-02-16] MEDS: K and/or MAG REPLACEMENT MC SCH (08:00)
[2019-02-16 10:00] VITALS: BP 127/61
[2019-02-16] MEDS: morphine 2 MG/ML inj. syringe IV PRN ×3 (10:39→19:32)
[2019-02-16 17:00] VITALS: BP 116/59
--- NOTE | 2019-02-16 18:10 | NUR ---
Problems reprioritized. Patient report given, questions answered & plan of care reviewed with Zita GODOY.
[2019-02-16 22:00] VITALS: BP 114/68
[2019-02-17] MEDS: HYDROcodone/acetaminophen 10/325mg tab PO PRN ×5 (01:23→19:25)
[2019-02-17] MEDS: ondansetron 4mg rapidly disintigrating tab PO PRN (01:36)
[2019-02-17] MEDS: morphine 2 MG/ML inj. syringe IV PRN ×4 (02:26→23:17)
[2019-02-17 06:00] VITALS: BP 108/54
--- NOTE | 2019-02-17 06:22 | NUR ---
received reported from ladi hernandez
[2019-02-17 06:23] LABS: ALBUMIN 1.6 G/DL (3.4-5.0); ANION GAP 7 (8-16); BLOOD UREA NITROGEN 22 MG/DL (7-18); BUN/CREATININE RATIO 12.3 (6.6-38.0); CALCIUM 9.3 MG/DL (8.5-10.1); CHLORIDE 101 MMOL/L (99-107); CREATININE 1.79 MG/DL (0.40-0.90); GLUCOSE 78 MG/DL (70-104); MAGNESIUM 1.6 MG/DL (1.5-2.4); POTASSIUM 4.8 MMOL/L (3.5-5.1); SODIUM 130 MMOL/L (135-145); TOTAL CARBON DIOXIDE 21.6 MMOL/L (24-32); eGFR 29 ML/MIN
--- NOTE | 2019-02-17 06:35 | NUR ---
Problems reprioritized. Patient report given, questions answered & plan of care reviewed with Arpita GODOY.
--- NOTE | 2019-02-17 06:42 | NUR ---
Patient in room ORTHO 4011. I have received report from Sarahi GODOY and had the opportunity to ask questions and assume patient care. Addendum: 02/17/19 at 0643 by Zita Zaidi RN on 02/16/19 at 1807
[2019-02-17 06:43] LABS: BASOPHILS % (AUTO) 0.5 % (0-1); EOSINOPHILS % (AUTO) 0.2 % (0-6); HEMATOCRIT 30.2 % (35.0-45.0); HEMOGLOBIN 9.9 g/dl (12.0-16.0); LYMPHOCYTES # (AUTO) 0.5 X10'3 (1.1-4.8); LYMPHOCYTES % (AUTO) 7.3 % (21-51); MEAN CORPUSCULAR HEMOGLOBIN 31.3 PG (27.0-31.0); MEAN CORPUSCULAR HGB CONC 32.8 g/dL (33.0-36.5); MEAN CORPUSCULAR VOLUME 95.3 FL (78-98); MEAN PLATELET VOLUME 7.8 FL (7.4-10.4); MONOCYTES # (AUTO) 0.5 X10'3 (0-0.9); MONOCYTES % (AUTO) 6.4 % (2-12); NEUTROPHILS # (AUTO) 6.3 X10'3 (1.8-7.7); NEUTROPHILS % (AUTO) 85.6 % (42-75); PLATELET COUNT 200 X10'3 (140-440); RED BLOOD COUNT 3.16 X10'6 (4.20-5.60); WHITE BLOOD COUNT 7.4 X10'3 (4.5-11.0)
[2019-02-17] MEDS: K and/or MAG REPLACEMENT MC SCH (07:49)
[2019-02-17] MEDS: lactobacillus rhamnosus 10,000 MMU CELLS/CAPSULE PO SCH ×2 (07:53→21:03)
[2019-02-17] MEDS: aspirin 325mg tablet, delayed-release (Ecotrin) PO SCH (07:54)
[2019-02-17] MEDS: lactulose 20gm/30ml cup PO SCH (07:54)
[2019-02-17] MEDS: sulfamethoxazole/trimethoprim DS (800/160mg) tablet PO SCH ×2 (07:54→21:04)
[2019-02-17] MEDS: ondansetron/PF 4mg/2ml inj IV PRN (07:57)
[2019-02-17 10:00] VITALS: BP 111/56
[2019-02-17] MEDS ORDERED: normal saline 1000ml 1,000 ML IV SCH (11:40)
--- NOTE | 2019-02-17 15:55 | NUR ---
admin 2 mg of morphine, checked medication w/another nurse prior to admin, continue to monitor Addendum: 02/17/19 at 1602 by Annalee Paiz RN patria shows that i wasted the morphine but i did not waste any medication, admin 2 mg of morphine for a pain level of 8
[2019-02-17 18:00] VITALS: BP 105/61
--- NOTE | 2019-02-17 18:29 | NUR ---
gave report to ladi madison
[2019-02-17 22:00] VITALS: BP 118/57
[2019-02-18] MEDS: HYDROcodone/acetaminophen 10/325mg tab PO PRN ×2 (00:28→04:58)
[2019-02-18] MEDS: morphine 2 MG/ML inj. syringe IV PRN ×3 (02:50→12:07)
[2019-02-18 06:00] VITALS: BP 122/59
[2019-02-18 06:58] LABS: BASOPHILS % (AUTO) 0.4 % (0-1); EOSINOPHILS % (AUTO) 0.5 % (0-6); HEMATOCRIT 29.3 % (35.0-45.0); HEMOGLOBIN 9.8 g/dl (12.0-16.0); LYMPHOCYTES # (AUTO) 0.5 X10'3 (1.1-4.8); LYMPHOCYTES % (AUTO) 6.4 % (21-51); MEAN CORPUSCULAR HEMOGLOBIN 31.7 PG (27.0-31.0); MEAN CORPUSCULAR HGB CONC 33.4 g/dL (33.0-36.5); MEAN CORPUSCULAR VOLUME 94.8 FL (78-98); MEAN PLATELET VOLUME 7.8 FL (7.4-10.4); MONOCYTES # (AUTO) 0.5 X10'3 (0-0.9); MONOCYTES % (AUTO) 6.7 % (2-12); NEUTROPHILS # (AUTO) 6.4 X10'3 (1.8-7.7); PLATELET COUNT 211 X10'3 (140-440); RED BLOOD COUNT 3.09 X10'6 (4.20-5.60); WHITE BLOOD COUNT 7.5 X10'3 (4.5-11.0)
[2019-02-18 07:05] LABS: ALBUMIN 1.6 G/DL (3.4-5.0); ANION GAP 7 (8-16); BLOOD UREA NITROGEN 23 MG/DL (7-18); BUN/CREATININE RATIO 12.4 (6.6-38.0); CALCIUM 9.7 MG/DL (8.5-10.1); CHLORIDE 101 MMOL/L (99-107); CREATININE 1.85 MG/DL (0.40-0.90); GLUCOSE 84 MG/DL (70-104); MAGNESIUM 1.6 MG/DL (1.5-2.4); SODIUM 129 MMOL/L (135-145); TOTAL CARBON DIOXIDE 20.8 MMOL/L (24-32); eGFR 28 ML/MIN
[2019-02-18] MEDS: K and/or MAG REPLACEMENT MC SCH (07:30)
[2019-02-18] MEDS: sulfamethoxazole/trimethoprim DS (800/160mg) tablet PO SCH (07:33)
[2019-02-18] MEDS: lactobacillus rhamnosus 10,000 MMU CELLS/CAPSULE PO SCH (07:33)
[2019-02-18] MEDS: aspirin 325mg tablet, delayed-release (Ecotrin) PO SCH (07:33)
[2019-02-18] MEDS: lactulose 20gm/30ml cup PO SCH (07:33)
[2019-02-18] MEDS: ondansetron/PF 4mg/2ml inj IV PRN (08:38)
[2019-02-18] MEDS: HYDROcodone/acetaminophen 5mg/325mg tablet PO PRN (08:40)
--- NOTE | 2019-02-18 09:36 | NUR ---
PAGER ID: [phone] MESSAGE: [phone] Leslie Johnson Patient is requesting a muscle relaxer for a painful left leg. Dilcia [phone]
[2019-02-18 10:00] VITALS: BP 115/60
[2019-02-18] MEDS ORDERED: FLU VACC QS 2019-20 (6 MOS UP) 60 MCG/0.5 ML VIAL IMVAC ONE (10:10)
[2019-02-18] MEDS ORDERED: cyclobenzaprine 10mg tablet PO PRN (11:00)
[2019-02-18] MEDS: ondansetron 4mg rapidly disintigrating tab PO PRN (12:07)
== END 2019-02-18 12:40 | disposition hospice, home (50) | DRG 343 ==
LOC: ER 22:40 → ED HOLD 02-14 00:40 → EDBEDREQ 02-14 03:16 → ORTHO 4S 02-14 03:35 → CMPBEDREQ 02-14 03:37
PROVIDERS: ADMIT Hospitalist; ATTEND Internal Medicine
DX: C79.51 Secondary malignant neoplasm of bone (principal); D68.59 Other primary thrombophilia; E11.22 Type 2 diabetes mellitus with diabetic chronic kidney disease; I82.811 Embolism and thrombosis of superficial veins of right lower extremity; N13.30 Unspecified hydronephrosis; C67.9 Malignant neoplasm of bladder, unspecified; D63.8 Anemia in other chronic diseases classified elsewhere; T83.83XA Hemorrhage due to genitourinary prosthetic devices, implants and grafts, initial encounter; Y83.8 Other surgical procedures as the cause of abnormal reaction of the patient, or of later complication, without mention of misadventure at the time of the procedure; I12.9 Hypertensive chronic kidney disease with stage 1 through stage 4 chronic kidney disease, or unspecified chronic kidney disease; N18.9 Chronic kidney disease, unspecified; Z51.5 Encounter for palliative care; Z66 Do not resuscitate; M79.652 Pain in left thigh; Z88.0 Allergy status to penicillin; Z88.1 Allergy status to other antibiotic agents; Z79.899 Other long term (current) drug therapy; Y92.89 Other specified places as the place of occurrence of the external cause
CPT/HCPCS: 36415; 71045; 72148; 80048; 80053; 83036; 83735; 85025; 85610; 87081; 93971; 96374; 96375; 97110; 97116; 97161; 97530; 97535; 99285; G0378; J2060; J2270; J2405; J7030; Q2037